=== PATIENT | female | born 1960 | race Caucasian/White ===

== ENCOUNTER 2016-05-30 10:00 | Outpatient (CLI) | payer MEDICARE ==
--- OUTSIDE RECORDS SUMMARY | 2016-05-26 05:43 | XMS REPORT | Continuity of Care Document ---
Author Author [facility] Organization [facility] Address Unknown Phone Unavailable Care Team Providers Care Child Care Assistant Name Role Phone Willian Isaac PCP [phone] Source Comments Some departments are not documenting in the electronic medical record. If you do not see the information that you expected, contact Release of Information in the Health Information Management department at [phone] for further assistance in locating additional records.[facility] Active Allergies and Adverse Reactions No Known Allergies Current Medications Prescription Sig. Disp. Refills Start End Date Status Date lamoTRIgine (LAMICTAL) Take 200 mg by mouth Active 200 mg tablet daily. ziprasidone (GEODON) 80 Take 160 mg by mouth Active mg capsule daily with dinner. zolpidem CR(+) (AMBIEN Take 12.5 mg by mouth at Active CR) 12.5 mg tablet bedtime as needed. traZODone (DESYREL) 150 Take 150 mg by mouth at Active mg tablet bedtime daily. promethazine (PHENERGAN) Take 25 mg by mouth every Active 25 mg tablet 6 hours as needed. cyclobenzaprine Take 10 mg by mouth twice Active (FLEXERIL) 10 mg tablet daily. esomeprazole DR(+) Take 40 mg by mouth every Active (NEXIUM) 40 mg capsule morning. buPROPion XL (WELLBUTRIN Take 1 Tab by mouth 15 Tab 0 08/07/19 Active XL) 150 mg tablet daily. 13 Active Problems Problem Noted Date Bipolar affective disorder, depressed, severe (HCC) 04/07/2010 OPIOID ABUSE, IN REMISSION 04/07/2010 History of alcohol abuse 04/07/2010 Depression 02/10/2010 Resolved Problems Problem Noted Date Resolved Date Suicidal ideation 04/07/2010 04/27/2010 Social History Tobacco Use Types Packs/Day Years Used Date Current Every Day Smoker Cigarettes 1.5 35 Smokeless Tobacco: Never Used Alcohol Use Drinks/Week oz/Week Comments Yes 6 Standard 3.0 history of alcohol dependence in remission for 10 drinks or years until January 2010 equivalent Last Filed Vital Signs Vital Sign Reading Time Taken Blood Pressure 112/72 08/06/2012 7:00 AM CDT Pulse 76 08/06/2012 7:00 AM CDT Temperature 36.8 C (98.2 F) 08/06/2012 7:00 AM CDT Respiratory Rate - - Height 1.645 m (5' 4.76") 08/02/2012 11:00 PM CDT Weight 69 kg (152 lb 1.9 oz) 08/02/2012 11:00 PM CDT Body Mass Index 25.5 08/02/2012 11:00 PM CDT Oxygen Saturation 98% 08/02/2012 6:35 PM CDT Plan of Care Health Maintenance Due Date Last Done Comments Physical (Comprehensive) 02/16/1968 Exam Pertussis Vaccine 02/16/1972 Tetanus Vaccine 1978 Cervical Cancer Screening 1982 Breast Cancer Screening 2001 Colorectal Cancer 2011 Screening Influenza Vaccine 12/17/2015 Results from Last 3 Months Not on file
[~2016-05-30] VITALS: Ht 162.6 cm; Wt 78.8 kg
[~2016-05-30 10:00] MED LIST: AMIT50TA3 PO; CALC-793 PO; CITA10TA PO; CLON2TAB16 PO; CYAN100081 PO; CYCL10TA9 PO; ESOM20SU PO; HYDR1TAB PO; LAMO100T69 PO; LAMO200T14 PO; METO10TA3 PO; MULT-963 PO; NAPR-591 PO; NAPR-689 PO; NAPR220C11 PO; NAPR550T2 PO; NF-ESOM40C PO; NITR100C3 PO; OXYB10TA8 PO; OXYC-272 PO; PRM25T PO; QUET300T3 PO; TBR.3OP51 OD; TIZA4TAB55 PO; TRAZ150T42 PO; VORT10TA PO; ZLP5T PO; ZOLP12.5 PO; ZOLP12.541 PO; ZPR80C PO
[2016-05-30] MEDS ORDERED: BUPR1FIL3 SL (10:12)
[2016-05-30] MEDS ORDERED: VENL150C PO (10:12)
[2016-05-30] MEDS ORDERED: GABA-490 PO (10:12)
[2016-05-30] MEDS ORDERED: OMEP20TA7 PO (10:12)
[2016-05-30] MEDS ORDERED: CLON1TAB PO (10:12)
[2016-05-30] MEDS ORDERED: AMIT100T2 PO (10:12)
--- OUTSIDE RECORDS SUMMARY | 2016-05-30 10:51 | XMS REPORT | Continuity of Care Document ---
Author Author [facility] Organization [facility] Address Unknown Phone Unavailable Care Team Providers Care Maintenance Department Technician Name Role Phone Willian Isaac PCP [phone] Source Comments Some departments are not documenting in the electronic medical record. If you do not see the information that you expected, contact Release of Information in the Health Information Management department at [phone] for further assistance in locating additional records.[facility] Active Allergies and Adverse Reactions No Known [...]
[2016-05-31] MEDS ORDERED: PANT40TA3 PO (10:29)
[2016-05-31] MEDS ORDERED: SUCR1TAB36 PO (10:30)
== END 2016-05-30 11:04 ==
LOC: PREOP 10:00
PROVIDERS: ATTEND Surgery
DX: Z01.818 Encounter for other preprocedural examination (principal); K21.9 Gastro-esophageal reflux disease without esophagitis

== ENCOUNTER 2016-05-31 09:06 | Day surgery (SDC) | payer MEDICARE, MEDICAID ==
[~2016-05-31] VITALS: Ht 162.6 cm; Wt 78.8 kg
[~2016-05-31 09:06] MED LIST changes: +AMIT100T2 PO; +BUPR1FIL3 SL; +CLON1TAB PO; +GABA-490 PO; +OMEP20TA7 PO; +VENL150C PO
--- OUTSIDE RECORDS SUMMARY | 2016-05-31 09:11 | XMS REPORT | Continuity of Care Document ---
Author Author [facility] Organization [facility] Address Unknown Phone Unavailable Care Team Providers Care Engagement Mgr Name Role Phone Willian Isaac PCP [phone] Source Comments Some departments are not documenting in the electronic medical record. If you do not see the information that you expected, contact Release of Information in the Health Information Management department at [phone] for further assistance in locating additional records.[facility] Active Allergies and Adverse Reactions No Known [...]
--- OUTSIDE RECORDS SUMMARY | 2016-05-31 09:11 | XMS REPORT | Continuity of Care Document ---
Author Author [facility] Organization [facility] Address Unknown Phone Unavailable Care Team Providers Care Superintendent Building Name Role Phone Willian Isaac PCP [phone] Source Comments Some departments are not documenting in the electronic medical record. If you do not see the information that you expected, contact Release of Information in the Health Information Management department at [phone] for further assistance in locating additional records.[facility] Active Allergies and Adverse Reactions [...]
[2016-05-31] MEDS ORDERED: NS IV 1000 ML 1,000 ML IV STA (09:21)
[2016-05-31] MEDS ORDERED: HURRICAINE EXT TUBE (BENZOCAINE) XX PRN (09:30)
[2016-05-31 09:35] VITALS: BP 158/79
[2016-05-31] MEDS ORDERED: PROPOFOL INJECTION 50 ML IV ONE (09:38)
[2016-05-31] MEDS ORDERED: MIDAZOLAM 2 MG/2 ML (VERSED) VIAL ONE (09:38)
--- NOTE | 2016-05-31 09:47 | Progress Note-Pre Operative ---
Pre-Operative Progress Note H&P Reviewed The H&P was reviewed, patient examined and no changes noted. Date H&P Reviewed: May 31, 2016 Time H&P Reviewed: 09:47 Pre-Operative Diagnosis: GERD, screening colonoscopy ASTER SERRANO DO May 31, 2016 9:47 am
[2016-05-31] MEDS ORDERED: PANT40TA3 PO (10:29)
--- NOTE | 2016-05-31 10:29 | Progress Note-Post Operative ---
Post-Operative Progess Note Pre-Operative Diagnosis GERD, screening colonoscopy Post-Operative Diagnosis hiatal hernia, gastritis, schatzski's ring and colon polyps Post-Op Procedure Note Date of Procedure: May 31, 2016 Name of Procedure: egd c biopsies, colonoscopy with hot bx polypectomy x 3 Procedure Note/Findings see note Anesthesia Type per desk operator Estimated blood loss (mL): none Specimen(s) collected antrum, distal esophagus, ascending, descending rectal polyps ASTER SERRANO DO May 31, 2016 10:29 am
[2016-05-31] MEDS ORDERED: SUCR1TAB36 PO (10:30)
--- NOTE | 2016-05-31 10:34 | Discharge Inst-Simple/Standard ---
Discharge Inst-Standard Discharge Medications New, Converted or Re-Newed RX: RX on Chart Patient Instructions/Follow Up Plan of Care/Instructions/FU: Follow up with Dr. Coughlin in 3 weeks Take medication as directed. Repeat colonoscopy in 5 years or sooner if current condition changes. Activity as Tolerated: Yes Discharge Diet: No Restrictions DERIC ALEXANDER APRN May 31, 2016 10:34
[2016-05-31 10:45] VITALS: BP 126/72
[2016-05-31 11:15] VITALS: BP 128/65
[2016-05-31 12:00] VITALS: BP 128/65
--- NOTE | 2016-06-01 13:38 | PROCEDURE REPORT ---
PROCEDURE PHYSICIAN: ASTER SERRANO DATE OF PROCEDURE: 05/31/2016 PREOPERATIVE DIAGNOSIS: 1. GERD. 2. Screening colonoscopy. POSTOPERATIVE DIAGNOSES: 1. Hiatal hernia. 2. Gastritis. 3. Schatzki's ring. 4. Colon polyps. PROCEDURE: 1. EGD with biopsies. 2. Colonoscopy with hot biopsy polypectomy x3. SURGEON: Ced. ANESTHESIA: Per ADVERTISING DISPATCH CLERK. ESTIMATED BLOOD LOSS: None. COMPLICATIONS: None. INDICATIONS: The patient is a 56-year-old female who has been having worsening reflux symptoms. She understands the risk and benefits of EGD and she also understood risks, benefits of colonoscopy, she has not had a colonoscopy. She understands both and wishes to proceed. Consent was signed on the chart. PROCEDURE: The patient was taken the endoscopy suite, placed in left lateral recumbent position. Timeout was performed. The scope was inserted in the mouth down the esophagus, stomach and into the duodenum. There were no polyps, masses or ulcerations within the duodenum. The scope was slowly retracted back to the stomach where it was further insufflated which had erythematous changes consistent with gastritis. Biopsy of the antrum was obtained. The scope was retroflexed noting a small hiatal hernia. The scope was then returned to its normal position slowly withdrawn back into the esophagus, where there was the presence of a Schatzki's ring. Biopsy of the distal esophagus was obtained. The scope was slowly retracted back until completely removed noting no other pathology. COLONOSCOPY: Digital rectal exam was performed. There is no palpable polyps, masses, ulcerations. The scope was inserted in the rectum, advanced all the way to the cecum with minimal difficulty. Prep was adequate with irrigation and suction. There were no polyps, masses, ulcerations of the cecum. Within the ascending colon there is a small polyp was present which hot biopsy polypectomy was performed. The scope was continued to be slowly retracted back to the transverse colon without any pathology noted. The scope was in the descending colon. A small polyp was present which hot biopsy polypectomy was performed. The scope was continued to be slowly retracted back and there no polyps, masses, ulcerations within the sigmoid colon. Within the rectum there was another small polyp present which hot biopsy polypectomy was performed. The scope was also retroflexed noting no further pathology. The scope was returned to its normal position slowly withdrawn until completely removed. The patient tolerated the procedure well without any complications. She was taken recovery room in stable condition. The patient will be changed from Prilosec to Protonix 40 mg daily. She will be on Carafate 1 gram 4 times a day. The patient will need repeat colonoscopy in 5 years due to colon polyps. If she has any problems prior to that, she should be reevaluated at that time. The patient will follow-up in 3 weeks to discuss pathology results. Job ID: [id number] Dictated Date: 05/31/2016 10:40:09 Board Finisher Date: 06/01/2016 13:28:53 / sammy
== END 2016-05-31 12:00 | disposition home or self-care (01) ==
LOC: ENDO 09:06
PROVIDERS: ATTEND Surgery
DX: Z12.11 Encounter for screening for malignant neoplasm of colon (principal); D12.2 Benign neoplasm of ascending colon; D12.8 Benign neoplasm of rectum; K63.5 Polyp of colon; K22.2 Esophageal obstruction; K44.9 Diaphragmatic hernia without obstruction or gangrene; K29.50 Unspecified chronic gastritis without bleeding; B96.81 Helicobacter pylori [H. pylori] as the cause of diseases classified elsewhere
CPT/HCPCS: 88305; 88342

== ENCOUNTER 2016-06-27 02:28 | Emergency (ER) | payer MEDICARE, MEDICAID ==
[~2016-06-27] VITALS: Ht 162.6 cm; Wt 81.6 kg
[~2016-06-27 02:28] MED LIST changes: +PANT40TA3 PO; +SUCR1TAB36 PO
--- OUTSIDE RECORDS SUMMARY | 2016-06-27 02:35 | XMS REPORT | Continuity of Care Document ---
Author Author [facility] Organization [facility] Address Unknown Phone Unavailable Care Team Providers Care Radar Scientist Name Role Phone Willian Isaac PCP [phone] Source Comments Some departments are not documenting in the electronic medical record. If you do not see the information that you expected, contact Release of Information in the Health Information Management department at [phone] for further assistance in locating additional records.[facility] Active Allergies and Adverse Reactions No [...]
[2016-06-27] MEDS ORDERED: LIDOCAINE 2% VISCOUS 15 ML UDC PO ONE (02:45)
[2016-06-27] MEDS ORDERED: ANTACID SUSP 30 ML UDC (MYLANTA) PO ONE (02:45)
[2016-06-27] MEDS ORDERED: SUCR1TAB36 PO (02:52)
--- NOTE | 2016-06-27 02:52 | ED EENT ---
History of Present Illness General Chief Complaint: Oral/Throat Problems Stated Complaint: THROAT PAIN Nursing Triage Note: patient reports her throat is burning, reports having this problem before and having egd done and given antibiotics and protonix Source: patient Exam Limitations: no limitations History of Present Illness Time seen by provider: 02:48 Initial Comments Patient has a history of reflux. She recently had a endoscopy which showed gastritis. She complains of burning in her throat especially when supine at night. This triggers a coughing spell. It happens every night but tonight it is worse. Allergies and Home Medications Allergies Coded Allergies: No Known Drug Allergies (Unverified , 11/11/11) Home Medications Amitriptyline HCl 100 Mg Tablet 100 MG PO HS (Reported) Buprenorphine HCl/Naloxone HCl 1 Each Film 1 EACH SL DAILY (Reported) Clonazepam 1 Mg Tablet 1 MG PO BID (Reported) Gabapentin 400 Mg Capsule 400 MG PO TID (Reported) Metoclopramide Hcl 10 Mg Tablet 10 MG PO ACHS (Reported) Pantoprazole Sodium 40 Mg Tablet.dr #30 40 MG PO DAILY Prescribed by: DERIC ALONZO on 05/31/16 1029 Sucralfate 1 Gm Tablet #120 1 GM PO QID Prescribed by: DERIC ALONZO on 05/31/16 1030 Sucralfate 1 Gm Tablet #20 1 GM PO ACHS Prescribed by: MARTHA JEAN on 06/27/16 0252 Venlafaxine HCl 150 Mg Cap.er.24h 300 MG PO DAILY (Reported) TAKE 2 (150MG) TABS Review of Systems Constitutional: no symptoms reported Throat: see HPI pain Respiratory: cough Past Ryzvqms-Cjilqw-Rnvope Hx Patient Social History Alcohol Use: Past History Recreational Drug Use: No Smoking Status: Former Smoker Type Used: Cigarettes Recent Foreign Travel: No Contact w/Someone Who Travel: No Recent Infectious Disease Expo: No Recent Hopitalizations: No Immunizations Up To Date Tetanus Booster (TDap): Unknown Date of Pneumonia Vaccine: Mar 19, 2012 Date of Influenza Vaccine: Mar 19, 2012 Seasonal Allergies Seasonal Allergies: No Surgeries HX Surgeries: Yes Surgeries: Section, Hysterectomy Respiratory Hx Respiratory Disorders: No Cardiovascular Hx Cardiac Disorders: No Neurological Hx Neurological Disorders: No Reproductive System Hx Reproductive Disorders: No Sexually Transmitted Disease: No HIV/AIDS: No Female Reproductive Disorders: 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 Genitourinary Hx Genitourinary Disorders: Yes (URGE INCONTINENCE) Gastrointestinal Hx Gastrointestinal Disorders: Yes Gastrointestinal Disorders: Gastroesophageal Reflux, Chronic Constipation Musculoskeletal Hx Musculoskeletal Disorders: Yes Musculoskeletal Disorders: Arthritis Endocrine Hx Endocrine Disorders: No HEENT HX ENT Disorders: No Loss of Vision: Denies Hearing Impairment: Denies Cancer Hx Cancer: No Psychosocial Hx Psychiatric Problems: Yes (EXTENSIVE PSYCH ISSUES, history of overdose) Behavioral Health Disorders: Eating Disorder, Anxiety, Suicide Attempts, Depression Integumentary HX Skin/Integumentary Disorder: No Blood Transfusions Hx Blood Disorders: No Adverse Reaction to a Blood Tr: No Reviewed Nursing Assessment Reviewed/Agree w Nursing PMH: Yes Family Medical History Significant Family History: No Pertinent Family Hx Family Medial History: Physical Exam Vital Signs Vital Sign - Last 12Hours 06/27/16 02:39 Temp 99.2 Pulse 89 Resp 18 B/P 119/78 Pulse Ox 96 General Appearance: WD/WN no apparent distress Nose: normal inspection Mouth/Throat: pharynx normalNo tonsillar swelling, No uvula swelling, No voice changes Neck: supple Cardiovascular: regular rate, rhythm Respiratory: lungs clear normal breath sounds Gastrointestinal: soft Neurologic/Psychiatric: alert normal mood/affect Skin: normal color warm/dry Progress/Results/Core Measures Results/Orders My Orders Orders-MARTHA JEAN MD Antacid Suspension (Mylanta Suspension (06/27/16 02:45) Lidocaine 2% Viscous 15 Ml (Xylocaine Vi (06/27/16 02:45) Medications Given in ED Current Medications Medications Dose Ordered Sig/Spike Route Start Time Stop Time Status Last Admin Dose Admin Al Hydrox/Mg Hydrox/Simethicone 30 ml ONCE ONCE PO 06/27/16 02:45 06/27/16 02:47 DC 06/27/16 02:53 30 ML Lidocaine HCl 15 ml ONCE ONCE PO 06/27/16 02:45 06/27/16 02:47 DC 06/27/16 02:53 15 ML Vital Signs/I&O Vital Sign - Last 12Hours 06/27/16 02:39 Temp 99.2 Pulse 89 Resp 18 B/P 119/78 Pulse Ox 96 Blood Pressure Mean: 92 Progress Note : Time: 03:11 Progress Note Better after GI cocktail. Ready for discharge. Patient is on maximum medical therapy. Departure Impression Impression: Primary Impression: Gastroesophageal reflux Disposition: 01 HOME, SELF-CARE Condition: Stable Departure-Patient Inst. Decision time for Depature: 03:11 Referrals: BALA SUTTON MD (PCP/Family) Primary Care Physician Patient Instructions: Acid Reflux (Gastroesophageal Reflux Disease) in Adults MARTHA JEAN MD Jun 27, 2016 02:52
[2016-06-27 03:24] VITALS: BP 119/78
== END 2016-06-27 03:25 | disposition home or self-care (01) ==
LOC: EDUNIT# 02:28 → ER 02:31
DX: K21.9 Gastro-esophageal reflux disease without esophagitis (principal)
CPT/HCPCS: 99282

== ENCOUNTER 2016-10-26 18:06 | Emergency (ER) | payer MEDICARE, MEDICAID ==
[~2016-10-26] VITALS: Ht 162.6 cm; Wt 81.6 kg
--- OUTSIDE RECORDS SUMMARY | 2016-10-26 18:14 | XMS REPORT ---
Author Author NOHEMYANDREW Organization [facility] Address [address] [place] [address] Care Team Providers Care Pattern Mechanic Name Role Phone ANDREW SLATER Unavailable PROBLEMS Type Condition ICD9-CM Code KHW43-OC Code Onset Dates Condition Status SNOMED Code Assessment Bipolar disorder, current episode depressed, moderate F31.32 Dec, Active 539395520 Problem Neuropathy G62.9 Active 946474582 Problem Reflux esophagitis K21.0 Active 893472727 Assessment Other adjunct faculty for medical terminology (current) drug therapy Z79.899 Dec, Active 093481716 Assessment Anxiety disorder, unspecified F41.9 Dec, Active 587972815 Problem Bipolar disorder, current episode depressed, moderate F31.32 Active 062171416 Problem Alcohol dependence, uncomplicated F10.20 Active 16412876 Problem Hyperlipidemia, unspecified E78.5 Active 05157854 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 Unknown Non Drug Allergy Dec, Unknown SOCIAL HISTORY No smoking Hx information available PLAN OF CARE VITAL SIGNS Height 64 in 2015-12-31 Weight 171.9 lbs 2015-12-31 Heart Rate 100 bpm 2015-12-31 Respiratory Rate 20 2015-12-31 BMI 29.50 kg/m2 2015-12-31 Blood pressure systolic 164 mmHg 2015-12-31 Blood pressure diastolic 80 mmHg 2015-12-31 MEDICATIONS Medication Instructions Dosage Frequency Start Date End Date Duration Status Amitriptyline HCl 100 MG Orally Once a day at hs 2 tablets 30 days Active Propranolol HCl 10 MG Orally Twice a day 1 tablet 12h Active Omeprazole 20 MG Orally Once a day 1 24h 30 Active Suboxone 4-1 MG Sublingual Once a day 1 application under the tongue and allow to dissolve 24h Active Klonopin 1 MG Orally Twice a day 1 tablet 12h Active BuPROPion HCl (SR) 150 MG Orally Twice a day 1 tablet 12h Nov, 30 day(s) Active Effexor XR 150 MG Orally Once a day TAKE ONE CAPSULE BY MOUTH ONCE DAILY 24h 30 days Active Aleve 220 MG Orally every 12 hrs 1 tablet as needed 12h Active Lamotrigine 100 MG Orally Once a day Beginning January 28, 2016, take 1 tablet 24h Dec, 30 day(s) Active Lamotrigine 25 MG Orally daily 1 tablet every day X 2 weeks then 2 tabs daily X 2 weeks. 24h Dec, 28 days Active RESULTS No Results PROCEDURES Procedure Date Ordered Related Diagnosis Body Site [facility] VISIT ESTABLISHED PATIENT Dec 31, 2015 Office Visit, Est Pt., Level 4 Dec 31, 2015 IMMUNIZATIONS No Known Immunizations
--- OUTSIDE RECORDS SUMMARY | 2016-10-26 18:14 | XMS REPORT ---
Author Author EVAN COSTELLO Organization [employer] Address Unknown Phone Unavailable Care Team Providers Care Furs Salesperson Name Role Phone EVAN COSTELLO CP Unavailable Allergies, Adverse Reactions, Alerts Substance Reaction Event Type N.K.D.A. Info Not Available Non Drug Allergy Problems Problem Type Condition Code Onset Dates Condition Status Problem 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 Assessment Bipolar 1 disorder, depressed, severe F31.4 Active Problem Reflux esophagitis 530.11 Active Problem Bipolar disorder, current episode depressed, moderate F31.32 Active Problem Neuropathy 355.9 Active Problem Unspecified arthropathy, site unspecified 716.90 Active Problem Other and unspecified hyperlipidemia 272.4 Active Problem Alcohol dependence, uncomplicated F10.20 Active Problem Bulimia nervosa F50.2 Active Medications Medication Code System Code Instructions Start Date End Date Status Dosage Reglan [facility] [address]-90 10 MG 3 times a day November 04, 2013 1 tablet by Oral route 3 times per day a c Gabapentin [facility] [address]-65 300 MG Orally Three times a day Jan 08, 2015 1 capsule Suboxone [facility] [address]-24 8-2 MG Sublingual Once a day 1 application under the tongue and allow to dissolve Ambien [facility] [address]-98 10 MG Orally Once a day qHS October 24, 2014 1 tablet Effexor XR [facility] [address]-59 150 MG Orally Once a day - start on day 8 Dec 23, 2014 1 capsule with food Topiramate [facility] [address]-18 50 MG Orally Twice a day August 25, 2014 1 tablet Aleve [facility] [address]-17 220 MG Orally every 12 hrs 1 tablet as needed Omeprazole [facility] [address]-51 20 MG Orally Once a day Jan 08, 2015 1 Naprosyn [facility] [address]-19 500 mg August 19, 2013 1 tablet by Oral route 2 times per day pc Lamictal [facility] [address]-40 200 MG Orally May 20, 2014 1 tablet by Oral route 1 time per day Stop drug and call if rash develops Seroquel [facility] [address]-52 300 MG Orally Once a day Dec 23, 2014 1 tablet at bedtime Procedures Procedure Coding System Code Date Office Visit, Yanely Pt., Level 3 CPT-4 74909 Jan 29, 2015 [facility] VISIT ESTABLISHED PATIENT CPT-4 G0467 Jan 29, 2015 Vital Signs Date/Time: Jan 29, 2015 Cardiac Monitoring Heart Rate 80 bpm Weight 163.0 lbs Height 64 in BMI 27.98 Index Blood Pressure Diastolic 74 mmHg Blood Pressure Systolic 125 mmHg Results No Known Results Summary Purpose [employer] Submission
--- OUTSIDE RECORDS SUMMARY | 2016-10-26 18:14 | XMS REPORT ---
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
--- OUTSIDE RECORDS SUMMARY | 2016-10-26 18:14 | XMS REPORT ---
Author Author ANDREW SLATER Organization [employer] Address Unknown Phone Unavailable Care Team Providers Care Disease Case Manager Name Role Phone ANDREW SLATER CP Unavailable Allergies No Known Allergies Problems Problem Type Condition Code Onset Dates Condition Status Assessment Alcohol dependence, uncomplicated F10.20 Active Problem Reflux esophagitis K21.0 Active Assessment Bipolar disorder, current episode depressed, moderate F31.32 Active Problem Alcohol dependence, uncomplicated F10.20 Active Problem Bulimia nervosa F50.2 Active Problem Bipolar disorder, current episode depressed, moderate F31.32 Active 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
--- OUTSIDE RECORDS SUMMARY | 2016-10-26 18:14 | XMS REPORT ---
Author Author VIDYA GARCIA Organization [employer] Address Unknown Phone Unavailable Care Team Providers Care Crank Hand Name Role Phone VIDYA GARCIA CP Unavailable Allergies No Known Allergies Problems Problem Type Condition Code Onset Dates Condition Status Assessment Bulimia nervosa F50.2 Active Problem 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 Assessment Bipolar disorder, current episode depressed, moderate F31.32 Active Assessment Alcohol dependence, uncomplicated F10.20 Active Problem Reflux esophagitis 530.11 Active Problem Bipolar disorder, current episode depressed, moderate F31.32 Active Problem Neuropathy 355.9 Active Problem Unspecified arthropathy, site unspecified 716.90 Active Problem Other and unspecified hyperlipidemia 272.4 Active Problem Alcohol dependence, uncomplicated F10.20 Active Problem Bulimia nervosa F50.2 Active Medications No Known Medications Procedures Procedure Coding System Code Date Psychotherapy, patient &/family, 45 minutes, established patient CPT-4 17615 Feb 20, 2015 [facility] VISIT MENTAL HEALTH ESTAB PT CPT-4 G0470 Feb 20, 2015 Results No Known Results Summary Purpose [employer] Submission
--- OUTSIDE RECORDS SUMMARY | 2016-10-26 18:14 | XMS REPORT ---
Author Author ANDREW SLATER Organization [employer] Address Unknown Phone Unavailable Care Team Providers Care Horse Racing Manager Name Role Phone ANDREW SLATER CP [...] unspecified E78.5 Active Medications No Known Medications Results No Known Results Summary Purpose [employer] Submission
--- OUTSIDE RECORDS SUMMARY | 2016-10-26 18:14 | XMS REPORT | Continuity of Care Document ---
Author Author [facility] Organization [facility] Address Unknown Phone Unavailable Care Team Providers Care Cancer Registrar Name Role Phone Willian Isaac PCP [phone] Source Comments Some departments are not documenting in the electronic medical record. If you do not see the information that you expected, contact Release of Information in the Health Information Management department at [phone] for further assistance in locating additional records.[facility] Active Allergies and Adverse Reactions No [...] Health Maintenance Due Date Last Done Comments Hepatitis C Screening 1961 Physical (Comprehensive) 02/16/1968 Exam Pertussis Vaccine 02/16/1972 Tetanus Vaccine 1978 Cervical Cancer Screening 1982 Breast Cancer Screening 2001 Colorectal Cancer 2011 Screening Influenza Vaccine 12/16/2016 Results from Last 3 Months Not on file
--- OUTSIDE RECORDS SUMMARY | 2016-10-26 18:14 | XMS REPORT ---
Author Author ANDREW SLATER Organization [employer] Address Unknown Phone Unavailable Care Team Providers Care Line Painting Machine Operator Name Role Phone ANDREW SLATER CP Unavailable [...] Instructions Start Date End Date Status Dosage BuPROPion HCl (SR) [facility] [address]-06 150 MG Orally Twice a day Dec 03, 2015 1 tablet Results No Known Results Summary Purpose [employer]ClinicalWorks Submission
--- OUTSIDE RECORDS SUMMARY | 2016-10-26 18:14 | XMS REPORT ---
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
--- OUTSIDE RECORDS SUMMARY | 2016-10-26 18:14 | XMS REPORT ---
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 Assessment Bipolar disorder, current episode depressed, moderate F31.32 Active Assessment Bulimia nervosa F50.2 Active Problem Reflux esophagitis 530.11 Active Problem Bipolar disorder, current episode depressed, moderate F31.32 Active Problem Neuropathy 355.9 Active Problem Unspecified arthropathy, site 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
--- OUTSIDE RECORDS SUMMARY | 2016-10-26 18:15 | XMS REPORT ---
Author Author BALA SUTTON Organization [employer] Address Unknown Phone Unavailable Care Team Providers Care Stoner Out Name Role Phone BALA SUTTON CP Unavailable Allergies No Known Allergies Problems Problem Type Condition Code Onset Dates Condition Status Problem Reflux esophagitis K21.0 Active Assessment Abnormal TSH R79.89 Active Problem Alcohol dependence, uncomplicated F10.20 Active Problem Bulimia nervosa F50.2 Active Problem Bipolar disorder, current episode depressed, moderate F31.32 Active Problem Hypertonicity of bladder N31.8 Active Problem Neuropathy G62.9 Active Problem Arthropathy, unspecified M12.9 Active Problem Hyperlipidemia, unspecified E78.5 Active Medications No Known Medications Results No Known Results Summary Purpose [employer] Submission
--- OUTSIDE RECORDS SUMMARY | 2016-10-26 18:15 | XMS REPORT ---
Author Author VIDYA GARCIA Organization [employer] Address Unknown Phone Unavailable Care Team Providers Care Guide Name Role Phone VIDYA GARCIA CP Unavailable [...] patient &/family, 45 minutes, established patient CPT-4 68366 Apr 02, 2015 [facility] VISIT MENTAL HEALTH ESTAB PT CPT-4 G0470 Apr 02, 2015 Results No Known Results Summary Purpose [employer] Submission
--- OUTSIDE RECORDS SUMMARY | 2016-10-26 18:15 | XMS REPORT ---
Author Author ANDREW SLATER Organization [employer] Address Unknown Phone Unavailable Care Team Providers Care Grain And Yeast Plants Supervisor Name Role Phone ANDREW SLATER CP Unavailable [...]
--- OUTSIDE RECORDS SUMMARY | 2016-10-26 18:15 | XMS REPORT ---
Author Author SHELBY TAO [employer] Address Unknown Phone Unavailable Care Team Providers Care Personalized Living Manager Nurse Name Role Phone SHELBY TAO Unavailable Allergies, Adverse Reactions, Alerts Substance Reaction Event Type N.K.D.A. Info Not Available Non Drug Allergy Problems Problem Type Condition Code Onset Dates Condition Status Assessment Other fatigue R53.83 Active Problem Reflux esophagitis K21.0 Active Assessment Well woman exam Z01.419 Active Problem Alcohol dependence, uncomplicated F10.20 Active Assessment Papanicolaou smear Z12.4 Active Problem Bulimia nervosa F50.2 Active Assessment Left lower quadrant pain R10.32 Active Problem Bipolar disorder, current episode depressed, moderate F31.32 Active Problem Hypertonicity of bladder N31.8 Active Problem Neuropathy G62.9 Active Problem Arthropathy, unspecified M12.9 Active Problem Hyperlipidemia, unspecified E78.5 Active Assessment Anxiety F41.9 Active Assessment Hot flashes due to surgical menopause E89.41 Active Assessment Vaginal discharge N89.8 Active Assessment Depression F32.9 Active Assessment Exposure to hepatitis C Z20.5 Active Assessment Other constipation K59.09 Active Assessment Tobacco use Z72.0 Active Assessment Decreased appetite R63.0 Active Assessment Dyspareunia N94.1 Active Assessment Weight loss R63.4 Active Medications Medication Code System Code Instructions Start Date End Date Status Dosage Topiramate [facility] [address]-43 50 MG Orally Twice a day August 25, 2014 1 tablet Amitriptyline HCl [facility] 23347519512 100 MG TAKE ONE TO TWO TABLETS BY MOUTH DAILY NEEDED FOR SLEEP Suboxone [facility] [address]-34 8-2 MG Sublingual Once a day 1 application under the tongue and allow to dissolve Aleve [facility] [address]-93 220 MG Orally every 12 hrs 1 tablet as needed Lamictal [facility] [address]-07 200 MG Orally May 20, 2014 1 tablet by Oral route 1 time per day Stop drug and call if rash develops Seroquel [facility] [address]-27 300 MG Orally Once a day Dec 23, 2014 1 tablet at bedtime Reglan [facility] [address]-39 10 MG 3 times a day November 04, 2013 1 tablet by Oral route 3 times per day a c Omeprazole [facility] [address]-92 20 MG Orally Once a day Jan 08, 2015 1 Gabapentin [facility] [address]-59 300 MG Orally Three times a day Jan 08, 2015 1 capsule Ambien [facility] [address]-57 10 MG Orally Once a day qHS October 24, 2014 1 tablet Effexor XR [facility] [address]-76 150 MG Orally Once a day TAKE ONE CAPSULE BY MOUTH ONCE DAILY Procedures Procedure Coding System Code Date No Charge CPT-4 37842 Apr 08, 2015 TRICHOMONAS ASSAY W/OPTIC CPT-4 88376 Apr 08, 2015 [facility] C[facility]-4 NOBLL Apr 08, 2015 VENIPUNCT, ROUTINE* CPT-4 61481 Apr 08, 2015 SPECIMEN HANDLING CPT-4 08000 Apr 08, 2015 Preventive Care Est Pt. Age 40-64 CPT-4 66171 Apr 08, 2015 Vital Signs Date/Time: Apr 08, 2015 Temperature 97.9 F Weight 156.1 lbs Height 64 in BMI 26.79 Index Blood Pressure Diastolic 84 mmHg Blood Pressure Systolic 142 mmHg Cardiac Monitoring Heart Rate 94 bpm Results Name Result Date Reference Range Unit Abnormality Flag ROUTINE VENIPUNCTURE Summary Purpose [employer]ClinicalWorks Submission
--- OUTSIDE RECORDS SUMMARY | 2016-10-26 18:15 | XMS REPORT ---
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
--- OUTSIDE RECORDS SUMMARY | 2016-10-26 18:15 | XMS REPORT ---
Author Author EVAN COSTELLO [facility] [employer] Address Unknown Phone Unavailable Care Team Providers Care Parts Delivery Driver Name Role Phone EVAN COSTELLO CP Unavailable Allergies, Adverse Reactions, Alerts Substance Reaction Event Type N.K.D.A. 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.90 Active Problem Other and unspecified hyperlipidemia 272.4 Active Problem Other specified disorders of bladder 596.89 Active Problem Bulimia nervosa 307.51 Active Problem 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 Problem Bipolar I disorder, most recent episode (or current) manic, moderate 296.42 Active Problem Other and unspecified alcohol dependence, unspecified drunkenness 303.90 Active Assessment Insomnia, unspecified 780.52 Active Assessment Bipolar I disorder, most recent episode (or current) depressed, severe, specified as with psychotic behavior 296.54 Active Problem Insomnia, unspecified 780.52 Active Assessment Anxiety state, unspecified 300.00 Active Problem Bipolar I disorder, most recent episode (or current) mixed, unspecified 296.60 Active Medications Medication Code System Code Instructions Start Date End Date Status Dosage Lamictal [facility] [address]-62 200 MG Orally May 20, 2014 1 tablet by Oral route 1 time per day Stop drug and call if rash develops Topiramate [facility] [address]-40 50 MG Orally Twice a day August 25, 2014 1 tablet Suboxone [facility] [address]-81 8-2 MG Sublingual Once a day 1 application under the tongue and allow to dissolve Effexor XR [facility] [address]-87 75 MG Orally Once a day - start on day 8 Dec 23, 2014 1 capsule with food Seroquel [facility] [address]-64 300 MG Orally Once a day Dec 23, 2014 1 tablet at bedtime Reglan [facility] [address]-89 10 mg November 04, 2013 1 tablet by Oral route 3 times per day a c Naprosyn [facility] [address]-06 500 mg August 19, 2013 1 tablet by Oral route 2 times per day pc Ambien [facility] [address]-00 10 MG Orally Once a day qHS October 24, 2014 1 tablet Effexor XR [facility] [address]-20 37.5 MG Orally Take one daily X 7 days Dec 1 capsule with food Procedures Procedure Coding System Code Date Office Visit, Est Pt., Level 3 CPT-4 45622 Dec 23, 2014 [facility] VISIT ESTABLISHED PATIENT CPT-4 G0467 Dec 23, 2014 Vital Signs Date/Time: Dec 23, 2014 Temperature 98.6 F Weight 165.6 lbs Height 64 in BMI 28.42 Index Blood Pressure Diastolic 82 mmHg Blood Pressure Systolic 128 mmHg Cardiac Monitoring Heart Rate 72 bpm Results No Known Results Summary Purpose [employer]ClinicalWorks Submission
--- OUTSIDE RECORDS SUMMARY | 2016-10-26 18:15 | XMS REPORT ---
Author Author VIDYA GARCIA [facility] e[employer] Address Unknown Phone Unavailable Care Team Providers Care Ladies Underwear Operator Name Role Phone VIDYA GARCIA CP Unavailable Allergies No Known Allergies Problems Problem Type Condition Code Onset Dates Condition Status Problem Reflux esophagitis K21.0 Active Assessment Bipolar [...] Coding System Code Date Psychotherapy, patient &/family, 30 minutes, established patient CPT-4 38540 October 22, 2015 [facility] VISIT MENTAL HEALTH ESTAB PT CPT-4 G0470 October 22, 2015 Results No Known Results Summary Purpose [employer]ClinicalWorks Submission
--- OUTSIDE RECORDS SUMMARY | 2016-10-26 18:15 | XMS REPORT ---
Author Author EVAN COSTELLO Organization [employer] Address Unknown Phone Unavailable Care Team Providers Care Hydraulic Lift Operator Name Role Phone EVAN COSTELLO CP Unavailable [...] Instructions Start Date End Date Status Dosage Omeprazole [facility] [address]-09 20 MG Orally Once a day Jan 08, 2015 1 Seroquel [facility] [address]-64 300 MG Orally Once a day Dec 23, 2014 1 tablet at bedtime Topiramate [facility] [address]-45 50 MG Orally Twice a day August 25, 2014 1 tablet Ambien [facility] [address]-10 10 MG Orally Once a day q October 24, 2014 1 tablet Gabapentin [facility] [address]-66 300 MG Orally Three times a day Jan 08, 2015 1 capsule Suboxone [facility] [address]-32 8-2 MG Sublingual Once a day 1 application under the tongue and allow to dissolve Aleve [facility] [address]-24 220 MG Orally every 12 hrs 1 tablet as needed Lamictal [facility] [address]-50 200 MG Orally May 20, 2014 1 tablet by Oral route 1 time per day Stop drug and call if rash develops Reglan [facility] [address]-09 10 MG 3 times a day November 04, 2013 1 tablet by Oral route 3 times per day a c Effexor XR [facility] [address]-33 150 MG Orally Once a day TAKE ONE CAPSULE BY MOUTH ONCE DAILY Procedures Procedure Coding System Code Date Office Visit, Yanely Pt., Level 3 CPT-4 69104 Mar 03, 2015 [facility] VISIT ESTABLISHED PATIENT CPT-4 G0467 Mar 03, 2015 Vital Signs Date/Time: Mar 03, 2015 Cardiac Monitoring Heart Rate 104 bpm Weight 159.9 lbs Height 64 in BMI 27.44 Index Blood Pressure Diastolic 88 mmHg Blood Pressure Systolic 160 mmHg Results No Known Results Summary Purpose [employer]ClinicalWorks Submission
--- OUTSIDE RECORDS SUMMARY | 2016-10-26 18:16 | XMS REPORT ---
Author Author ANDREW SLATER [employer] Address Unknown Phone Unavailable Care Team Providers Care Sign Builder Name Role Phone ANDREW SLATER CP Unavailable Allergies, Adverse Reactions, Alerts Substance Reaction Event Type N.K.D.A. Info Not Available Non Drug Allergy Problems Problem Type Condition Code Onset Dates Condition Status Assessment Anxiety disorder, unspecified F41.9 Active Problem Reflux esophagitis K21.0 Active Assessment [...] Date End Date Status Dosage BuPROPion HCl (Smoking Deter) [facility] [address]-85 150 MG Orally Twice a day 1 tablet Effexor XR [facility] [address]-33 150 MG Orally Once a day TAKE ONE CAPSULE BY MOUTH ONCE DAILY Klonopin [facility] [address]-48 1 MG Orally Twice a day 1 tablet Amitriptyline HCl [facility] 48351993582 100 MG Orally Once a day at hs 2 tablets BuPROPion HCl (XL) [facility] [address]-89 150 MG Orally BID Dec 01, 2015 1 tablet Ambien [facility] [address]-13 5 MG Orally Once a day qHS October 24, 2014 1 tablet Aleve [facility] [address]-02 220 MG Orally every 12 hrs 1 tablet as needed Propranolol HCl [facility] [address]-68 10 MG Orally Twice a day 1 tablet Suboxone [facility] [address]-60 8-2 MG Sublingual Once a day 1 application under the tongue and allow to dissolve Procedures Procedure Coding System Code Date Office Visit, Est Pt., Level 4 CPT-4 60310 Dec 01, 2015 [facility] VISIT ESTABLISHED PATIENT CPT-4 G0467 Dec 01, 2015 Vital Signs Date/Time: Dec 01, 2015 Cardiac Monitoring Heart Rate 112 bpm Weight 172.0 lbs Height 64 in BMI 29.52 Index Blood Pressure Diastolic 83 mmHg Blood Pressure Systolic 140 mmHg Results No Known Results Summary Purpose [employer]ClinicalWorks Submission
--- OUTSIDE RECORDS SUMMARY | 2016-10-26 18:16 | XMS REPORT ---
Author Author BALA SUTTON [facility] [employer] Address Unknown Phone Unavailable Care Team Providers Care Measurement Advisor Name Role Phone BALA SUTTON CP Unavailable [...] Instructions Start Date End Date Status Dosage Effexor XR [facility] [address]-23 150 MG Orally Once a day TAKE ONE CAPSULE BY MOUTH ONCE DAILY Results No Known Results Summary Purpose [employer]ClinicalWorks Submission
--- OUTSIDE RECORDS SUMMARY | 2016-10-26 18:16 | XMS REPORT ---
Author Author SHELBY TAO Organization [employer] Address Unknown Phone Unavailable Care Team Providers Care Lay Out Helper Name Role Phone SHELBY TAO Unavailable Allergies No Known Allergies Problems Problem [...] Instructions Start Date End Date Status Dosage Amoxicillin [facility] [address]-73 500 MG Orally every 8 hours Apr 22, 2015 Apr 29, 2015 1 capsule Results No Known Results Summary Purpose [employer]ClinicalWorks Submission
--- OUTSIDE RECORDS SUMMARY | 2016-10-26 18:16 | XMS REPORT ---
Author Author EVAN COSTELLO Organization [employer] Address Unknown Phone Unavailable Care Team Providers Care Sign Maintenance Name Role Phone EVAN COSTELLO CP Unavailable Allergies No Known Allergies Problems Problem Type Condition ICD-9 Code Onset Dates Condition Status Problem Bipolar I disorder, most recent episode (or current) depressed, severe , specified as with psychotic behavior 296.54 Active Problem Need for prophylactic vaccination and inoculation, Influenza V04.81 Active Problem Anxiety state, unspecified 300.00 Active Problem Insomnia, unspecified 780.52 Active Problem Bipolar I disorder, most recent episode (or current) mixed, unspecified 296.60 Active Problem Unspecified arthropathy, site unspecified 716.90 Active Problem Other and unspecified hyperlipidemia 272.4 Active Problem Other specified disorders of bladder 596.89 Active Problem Bulimia nervosa 307.51 Active Problem 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
--- OUTSIDE RECORDS SUMMARY | 2016-10-26 18:17 | XMS REPORT | Continuity of Care Document ---
Author Author [facility] of [facility] of [facility] Address Unknown Phone Unavailable Allergies Active Description Code Type Severity Reaction Onset Reported/Identified Relationship to Patient Clinical Status Yes No Known Drug Allergies [id number] Drug Allergy Unknown N/ A 11/11/2011 Medications Problems Date Dx Coded Attending Type Code Diagnosis Diagnosed By 08/11/2009 296.7 BIPOLAR I DISORDER MOST RECENT EPISODE (OR CURRENT) UNSPECIFIED 08/11/2009 787.02 NAUSEA ALONE 08/11/2009 EVANGELINA WATERMAN DO 296.7 BIPOLAR I DISORDER MOST RECENT EPISODE (OR CURRENT) UNSPECIFIED 08/11/2009 EVANGELINA WATERMAN DO 787.02 NAUSEA ALONE 08/11/2009 VIDYA GARCIA PSYD L 296.7 BIPOLAR I DISORDER MOST RECENT EPISODE (OR CURRENT) UNSPECIFIED 08/11/2009 VIDYA GARCIA PSYD 787.02 NAUSEA ALONE 08/11/2009 VIDYA GARCIA PSYD 296.7 BIPOLAR I DISORDER MOST RECENT EPISODE (OR CURRENT) UNSPECIFIED 08/11/2009 VIDYA GARCIA PSYD 787.02 NAUSEA ALONE 08/11/2009 EVANGELINA WATERMAN DO 296.7 BIPOLAR I DISORDER MOST RECENT EPISODE (OR CURRENT) UNSPECIFIED 08/11/2009 EVANGELINA WATERMAN DO 787.02 NAUSEA ALONE 08/11/2009 296.7 BIPOLAR I DISORDER MOST RECENT EPISODE (OR CURRENT) UNSPECIFIED 08/11/2009 787.02 NAUSEA ALONE 08/11/2009 296.7 BIPOLAR I DISORDER MOST RECENT EPISODE (OR CURRENT) UNSPECIFIED 08/11/2009 787.02 NAUSEA ALONE 08/11/2009 296.7 BIPOLAR I DISORDER MOST RECENT EPISODE (OR CURRENT) UNSPECIFIED 08/11/2009 787.02 NAUSEA ALONE 08/11/2009 296.7 BIPOLAR I DISORDER MOST RECENT EPISODE (OR CURRENT) UNSPECIFIED 08/11/2009 787.02 NAUSEA ALONE 08/11/2009 296.7 BIPOLAR I DISORDER MOST RECENT EPISODE (OR CURRENT) UNSPECIFIED 08/11/2009 787.02 NAUSEA ALONE 08/11/2009 296.7 BIPOLAR I DISORDER MOST RECENT EPISODE (OR CURRENT) UNSPECIFIED 08/11/2009 787.02 NAUSEA ALONE 08/11/2009 296.7 BIPOLAR I DISORDER MOST RECENT EPISODE (OR CURRENT) UNSPECIFIED 08/11/2009 787.02 NAUSEA ALONE 08/11/2009 296.7 BIPOLAR I DISORDER MOST RECENT EPISODE (OR CURRENT) UNSPECIFIED 08/11/2009 787.02 NAUSEA ALONE 08/11/2009 EVANGELINA WATERMAN DO 296.7 BIPOLAR I DISORDER MOST RECENT EPISODE (OR CURRENT) UNSPECIFIED 08/11/2009 EVANGELINA WATERMAN DO F 787.02 NAUSEA ALONE 08/11/2009 HASEEB BURGOS APRN 296.7 BIPOLAR I DISORDER MOST RECENT EPISODE (OR CURRENT) UNSPECIFIED 08/11/2009 HASEEB BURGOS APRN 787.02 NAUSEA ALONE 08/11/2009 VIDYA GARCIA PSYD 296.7 BIPOLAR I DISORDER MOST RECENT EPISODE (OR CURRENT) UNSPECIFIED 08/11/2009 VIDYA GARCIA PSYD 787.02 NAUSEA ALONE 08/11/2009 HASEEB BURGOS APRN 296.7 BIPOLAR I DISORDER MOST RECENT EPISODE (OR CURRENT) UNSPECIFIED 08/11/2009 HASEEB BURGOS APRN 787.02 NAUSEA ALONE 08/11/2009 BALA SUTTON MD 296.7 BIPOLAR I DISORDER MOST RECENT EPISODE (OR CURRENT) UNSPECIFIED 08/11/2009 BALA SUTTON MD 787.02 NAUSEA ALONE 08/11/2009 HASEEB BURGOS APRN 296.7 BIPOLAR I DISORDER MOST RECENT EPISODE (OR CURRENT) UNSPECIFIED 08/11/2009 HASEEB BURGOS APRN 787.02 NAUSEA ALONE 08/11/2009 BALA SUTTON MD 296.7 BIPOLAR I DISORDER MOST RECENT EPISODE (OR CURRENT) UNSPECIFIED 08/11/2009 BALA SUTTON MD 787.02 NAUSEA ALONE 08/11/2009 HASEEB BURGOS APRN 296.7 BIPOLAR I DISORDER MOST RECENT EPISODE (OR CURRENT) UNSPECIFIED 08/11/2009 HASEEB BURGOS APRN 787.02 NAUSEA ALONE 08/11/2009 TRANG ARTIFICIAL BREEDING TECHNICIAN, EVAN 296.7 BIPOLAR I DISORDER MOST RECENT EPISODE (OR CURRENT) UNSPECIFIED 08/11/2009 TRANG BUI, EVAN 787.02 NAUSEA ALONE 09/07/2009 716.90 Arthritis/ Arthropathy, Unspecified 09/07/2009 EVANGELINA WATERMAN DO 716.90 Arthritis/ Arthropathy, Unspecified 09/07/2009 VIDYA GARCIA PSYD 716.90 Arthritis/ Arthropathy, Unspecified 09/07/2009 VIDYA GARCIA PSYD 716.90 Arthritis/ Arthropathy, Unspecified 09/07/2009 EVANGELINA WATERMAN DO 716.90 Arthritis/ Arthropathy, Unspecified 09/07/2009 716.90 Arthritis/ Arthropathy, Unspecified 09/07/2009 716.90 Arthritis/ Arthropathy, Unspecified 09/07/2009 716.90 Arthritis/ Arthropathy, Unspecified 09/07/2009 716.90 Arthritis/ Arthropathy, Unspecified 09/07/2009 716.90 Arthritis/ Arthropathy, Unspecified 09/07/2009 716.90 Arthritis/ Arthropathy, Unspecified 09/07/2009 716.90 Arthritis/ Arthropathy, Unspecified 09/07/2009 716.90 Arthritis/ Arthropathy, Unspecified 09/07/2009 EVANGELINA WATERMAN DO 716.90 Arthritis/ Arthropathy, Unspecified 09/07/2009 LORETTA BUI, HASEEB EVANS 716.90 Arthritis/ Arthropathy, Unspecified 09/07/2009 VIDYA GARCIA PSYD 716.90 Arthritis/ Arthropathy, Unspecified 09/07/2009 LORETTA BUI, HASEEB EVANS 716.90 Arthritis/ Arthropathy, Unspecified 09/07/2009 BALA SUTTON MD 716.90 Arthritis/ Arthropathy, Unspecified 09/07/2009 LORETTA BUI, HASEEB EVANS 716.90 Arthritis/ Arthropathy, Unspecified 09/07/2009 LESLEY FUENTES, BALA 716.90 Arthritis/ Arthropathy, Unspecified 09/07/2009 LORETTA BUI, HASEEB EVANS 716.90 Arthritis/ Arthropathy, Unspecified 09/07/2009 TRANG BUI, EVAN 716.90 Arthritis/ Arthropathy, Unspecified 11/12/2009 296.40 MO BIPOLAR MANIC UNSPECIFIED 11/12/2009 300.01 AN PANIC DIS W/O AGORA 11/12/2009 300.23 An Social Phobia 11/12/2009 307.47 Si Dyssomnia Nos 11/12/2009 GUEVARA COREY EVANGELINA F 296.40 MO BIPOLAR MANIC UNSPECIFIED 11/12/2009 GUEVARA COREY EVANGELINA F 300.01 AN PANIC DIS W/O AGORA 11/12/2009 GUEVARA COREY EVANGELINA F 300.23 An Social Phobia 11/12/2009 EVANGELINA WATERMAN DO F 307.47 Si Dyssomnia Nos 11/12/2009 VIDYA GARCIA PSYD ANN L 296.40 MO BIPOLAR MANIC UNSPECIFIED 11/12/2009 RADHA AMATO ANETA L 300.01 AN PANIC DIS W/O AGORA 11/12/2009 RADHA AMATO ANETA L 300.23 An Social Phobia 11/12/2009 VIDYA GARCIA PSYD ANN L 307.47 Si Dyssomnia Nos 11/12/2009 RADHA AMATO ANETA L 296.40 MO BIPOLAR MANIC UNSPECIFIED 11/12/2009 RADHA AMATO ANETA L 300.01 AN PANIC DIS W/O AGORA 11/12/2009 VIDYA GARCIA PSYD ANN L 300.23 An Social Phobia 11/12/2009 VIDYA GARCIA PSYD ANN L 307.47 Si Dyssomnia Nos 11/12/2009 GUEVARA COREY EVANGELINA F 296.40 MO BIPOLAR MANIC UNSPECIFIED 11/12/2009 EVANGELINA WATERMAN DO F 300.01 AN PANIC DIS W/O AGORA 11/12/2009 EVANGELINA WATERMAN DO F 300.23 An Social Phobia 11/12/2009 EVANGELINA WATERMAN DO F 307.47 Si Dyssomnia Nos 11/12/2009 296.40 MO BIPOLAR MANIC UNSPECIFIED 11/12/2009 300.01 AN PANIC DIS W/O AGORA 11/12/2009 300.23 An Social Phobia 11/12/2009 307.47 Si Dyssomnia Nos 11/12/2009 296.40 MO BIPOLAR MANIC UNSPECIFIED 11/12/2009 300.01 AN PANIC DIS W/O AGORA 11/12/2009 300.23 An Social Phobia 11/12/2009 307.47 Si Dyssomnia Nos 11/12/2009 296.40 MO BIPOLAR MANIC UNSPECIFIED 11/12/2009 300.01 AN PANIC DIS W/O AGORA 11/12/2009 300.23 An Social Phobia 11/12/2009 307.47 Si Dyssomnia Nos 11/12/2009 296.40 MO BIPOLAR MANIC UNSPECIFIED 11/12/2009 300.01 AN PANIC DIS W/O AGORA 11/12/2009 300.23 An Social Phobia 11/12/2009 307.47 Si Dyssomnia Nos 11/12/2009 296.40 MO BIPOLAR MANIC UNSPECIFIED 11/12/2009 300.01 AN PANIC DIS W/O AGORA 11/12/2009 300.23 An Social Phobia 11/12/2009 307.47 Si Dyssomnia Nos 11/12/2009 296.40 MO BIPOLAR MANIC UNSPECIFIED 11/12/2009 300.01 AN PANIC DIS W/O AGORA 11/12/2009 300.23 An Social Phobia 11/12/2009 307.47 Si Dyssomnia Nos 11/12/2009 296.40 MO BIPOLAR MANIC UNSPECIFIED 11/12/2009 300.01 AN PANIC DIS W/O AGORA 11/12/2009 300.23 An Social Phobia 11/12/2009 307.47 Si Dyssomnia Nos 11/12/2009 296.40 MO BIPOLAR MANIC UNSPECIFIED 11/12/2009 300.01 AN PANIC DIS W/O AGORA 11/12/2009 300.23 An Social Phobia 11/12/2009 307.47 Si Dyssomnia Nos 11/12/2009 EVANGELINA WATERMAN DO F 296.40 MO BIPOLAR MANIC UNSPECIFIED 11/12/2009 EVANGELINA WATERMAN DO 300.01 AN PANIC DIS W/O AGORA 11/12/2009 EVANGELINA WATERMAN DO 300.23 An Social Phobia 11/12/2009 EVANGELINA WATERMAN DO 307.47 Si Dyssomnia Nos 11/12/2009 HASEEB BURGOS APRN 296.40 MO BIPOLAR MANIC UNSPECIFIED 11/12/2009 HASEEB BURGOS APRN 300.01 AN PANIC DIS W/O AGORA 11/12/2009 HASEEB BURGOS APRN 300.23 An Social Phobia 11/12/2009 BURGOS HAO HASEEB CRISTINA 307.47 Si Dyssomnia Nos 11/12/2009 RADHA AMATO, ANETA L 296.40 MO BIPOLAR MANIC UNSPECIFIED 11/12/2009 RADHA AMATO, ANETA L 300.01 AN PANIC DIS W/O AGORA 11/12/2009 RADHA AMATO ANETA L 300.23 An Social Phobia 11/12/2009 RADHA AMATO, ANETA L 307.47 Si Dyssomnia Nos 11/12/2009 BURGOS APRN, HASEEB CRISTINA 296.40 MO BIPOLAR MANIC UNSPECIFIED 11/12/2009 LORETTA BUI HASEEB CRISTINA 300.01 AN PANIC DIS W/O AGORA 11/12/2009 LORETTA BUI HASEEB CRISTINA 300.23 An Social Phobia 11/12/2009 HASEEB BURGOS APRN 307.47 Si Dyssomnia Nos 11/12/2009 BALA SUTTON MD 296.40 MO BIPOLAR MANIC UNSPECIFIED 11/12/2009 BALA SUTTON MD 300.01 AN PANIC DIS W/O AGORA 11/12/2009 BALA SUTTON MD 300.23 An Social Phobia 11/12/2009 BALA SUTTON MD 307.47 Si Dyssomnia Nos 11/12/2009 HASEEB BURGOS APRN 296.40 MO BIPOLAR MANIC UNSPECIFIED 11/12/2009 HASEEB BURGOS APRN 300.01 AN PANIC DIS W/O AGORA 11/12/2009 HASEEB BURGOS APRN 300.23 An Social Phobia 11/12/2009 HASEEB BURGOS APRN 307.47 Si Dyssomnia Nos 11/12/2009 BALA SUTTON MD 296.40 MO BIPOLAR MANIC UNSPECIFIED 11/12/2009 BALA SUTTON MD 300.01 AN PANIC DIS W/O AGORA 11/12/2009 BALA SUTTON MD 300.23 An Social Phobia 11/12/2009 BALA SUTTON MD 307.47 Si Dyssomnia Nos 11/12/2009 HASEEB BURGOS APRN 296.40 MO BIPOLAR MANIC UNSPECIFIED 11/12/2009 LORETTA BUIHASEEB 300.01 AN PANIC DIS W/O AGORA 11/12/2009 HASEEB BURGOS APRN 300.23 An Social Phobia 11/12/2009 LORETTA LOVENHASEEB 307.47 Si Dyssomnia Nos 11/12/2009 TRANG ARTIFICIAL BREEDING TECHNICIAN, EVAN 296.40 MO BIPOLAR MANIC UNSPECIFIED 11/12/2009 TRANG ARTIFICIAL BREEDING TECHNICIAN, EVAN 300.01 AN PANIC DIS W/O AGORA 11/12/2009 TRANG ARTIFICIAL BREEDING TECHNICIAN, EVAN 300.23 An Social Phobia 11/12/2009 TRANG ARTIFICIAL BREEDING TECHNICIAN, EVAN 307.47 Si Dyssomnia Nos 11/26/2009 V58.69 LONG-TERM (CURRENT) USE OF OTHER MEDICATIONS 11/26/2009 EVANGELINA WATERMAN DO V58.69 LONG-TERM (CURRENT) USE OF OTHER MEDICATIONS 11/26/2009 VIDYA GARCIA PSYD V58.69 LONG-TERM (CURRENT) USE OF OTHER MEDICATIONS 11/26/2009 VIDYA GARCIA PSYD V58.69 LONG-TERM (CURRENT) USE OF OTHER MEDICATIONS 11/26/2009 EVANGELINA WATERMAN DO V58.69 LONG-TERM (CURRENT) USE OF OTHER MEDICATIONS 11/26/2009 V58.69 LONG-TERM (CURRENT) USE OF OTHER MEDICATIONS 11/26/2009 V58.69 LONG-TERM (CURRENT) USE OF OTHER MEDICATIONS 11/26/2009 V58.69 LONG-TERM (CURRENT) USE OF OTHER MEDICATIONS 11/26/2009 V58.69 LONG-TERM (CURRENT) USE OF OTHER MEDICATIONS 11/26/2009 V58.69 LONG-TERM (CURRENT) USE OF OTHER MEDICATIONS 11/26/2009 V58.69 LONG-TERM (CURRENT) USE OF OTHER MEDICATIONS 11/26/2009 V58.69 LONG-TERM (CURRENT) USE OF OTHER MEDICATIONS 11/26/2009 V58.69 LONG-TERM (CURRENT) USE OF OTHER MEDICATIONS 11/26/2009 EVANGELINA WATERMAN DO V58.69 LONG-TERM (CURRENT) USE OF OTHER MEDICATIONS 11/26/2009 LORETTA BUIHASEEB V58.69 LONG-TERM (CURRENT) USE OF OTHER MEDICATIONS 11/26/2009 VIDYA GARCIA PSYD V58.69 LONG-TERM (CURRENT) USE OF OTHER MEDICATIONS 11/26/2009 HASEEB BURGOS APRN V58.69 LONG-TERM (CURRENT) USE OF OTHER MEDICATIONS 11/26/2009 BALA SUTTON MD V58.69 LONG-TERM (CURRENT) USE OF OTHER MEDICATIONS 11/26/2009 HASEEB BURGOS APRN V58.69 LONG-TERM (CURRENT) USE OF OTHER MEDICATIONS 11/26/2009 BALA SUTTON MD V58.69 LONG-TERM (CURRENT) USE OF OTHER MEDICATIONS 11/26/2009 HASEEB BURGOS APRN V58.69 LONG-TERM (CURRENT) USE OF OTHER MEDICATIONS 11/26/2009 EVAN COSTELLO APRN V58.69 LONG-TERM (CURRENT) USE OF OTHER MEDICATIONS 12/11/2009 296.89 MO BIPOLAR II 12/11/2009 EVANGELINA WATERMAN DO 296.89 MO BIPOLAR II 12/11/2009 VIDYA GARCIA PSYD 296.89 MO BIPOLAR II 12/11/2009 VIDYA GARCIA PSYD 296.89 MO BIPOLAR II 12/11/2009 EVANGELINA WATERMAN DO 296.89 MO BIPOLAR II 12/11/2009 296.89 MO BIPOLAR II 12/11/2009 296.89 MO BIPOLAR II 12/11/2009 296.89 MO BIPOLAR II 12/11/2009 296.89 MO BIPOLAR II 12/11/2009 296.89 MO BIPOLAR II 12/11/2009 296.89 MO BIPOLAR II 12/11/2009 296.89 MO BIPOLAR II 12/11/2009 296.89 MO BIPOLAR II 12/11/2009 EVANGELINA WATERMAN DO 296.89 MO BIPOLAR II 12/11/2009 HASEEB BURGOS APRN 296.89 MO BIPOLAR II 12/11/2009 VIDYA GARCIA PSYD 296.89 MO BIPOLAR II 12/11/2009 HASEEB BURGOS APRN 296.89 MO BIPOLAR II 12/11/2009 BALA SUTTON MD 296.89 MO BIPOLAR II 12/11/2009 HASEEB BURGOS APRN 296.89 MO BIPOLAR II 12/11/2009 BALA SUTTON MD 296.89 MO BIPOLAR II 12/11/2009 HASEEB BURGOS APRN 296.89 MO BIPOLAR II 12/11/2009 EVAN COSTELLO APRN 296.89 MO BIPOLAR II 12/15/2009 296.50 MO BIPOLAR I DEPRESSED UNSPECIFIED 12/15/2009 EVANGELINA WATERMAN DO 296.50 MO BIPOLAR I DEPRESSED UNSPECIFIED 12/15/2009 VIDYA GARCIA PSYD 296.50 MO BIPOLAR I DEPRESSED UNSPECIFIED 12/15/2009 VIDYA GARCIA PSYD 296.50 MO BIPOLAR I DEPRESSED UNSPECIFIED 12/15/2009 EVANGELINA WATERMAN DO 296.50 MO BIPOLAR I DEPRESSED UNSPECIFIED 12/15/2009 296.50 MO BIPOLAR I DEPRESSED UNSPECIFIED 12/15/2009 296.50 MO BIPOLAR I DEPRESSED UNSPECIFIED 12/15/2009 296.50 MO BIPOLAR I DEPRESSED UNSPECIFIED 12/15/2009 296.50 MO BIPOLAR I DEPRESSED UNSPECIFIED 12/15/2009 296.50 MO BIPOLAR I DEPRESSED UNSPECIFIED 12/15/2009 296.50 MO BIPOLAR I DEPRESSED UNSPECIFIED 12/15/2009 296.50 MO BIPOLAR I DEPRESSED UNSPECIFIED 12/15/2009 296.50 MO BIPOLAR I DEPRESSED UNSPECIFIED 12/15/2009 EVANGELINA WATERMAN DO 296.50 MO BIPOLAR I DEPRESSED UNSPECIFIED 12/15/2009 HASEEB BURGOS APRN 296.50 MO BIPOLAR I DEPRESSED UNSPECIFIED 12/15/2009 VIDYA GARCIA PSYD 296.50 MO BIPOLAR I DEPRESSED UNSPECIFIED 12/15/2009 HASEEB BURGOS APRN 296.50 MO BIPOLAR I DEPRESSED UNSPECIFIED 12/15/2009 BALA SUTTON MD 296.50 MO BIPOLAR I DEPRESSED UNSPECIFIED 12/15/2009 HASEEB BURGOS APRN 296.50 MO BIPOLAR I DEPRESSED UNSPECIFIED 12/15/2009 BALA SUTTON MD 296.50 MO BIPOLAR I DEPRESSED UNSPECIFIED 12/15/2009 HASEEB BURGOS APRN 296.50 MO BIPOLAR I DEPRESSED UNSPECIFIED 12/15/2009 EVAN COSTELLO APRN 296.50 MO BIPOLAR I DEPRESSED UNSPECIFIED 01/12/2010 307.50 EA EATING DISORDER UNSPECIFIED 01/12/2010 EVANGELINA WATERMAN DO 307.50 EA EATING DISORDER UNSPECIFIED 01/12/2010 VIDYA GARCIA PSYD 307.50 EA EATING DISORDER UNSPECIFIED 01/12/2010 VIDYA GARCIA PSYD 307.50 EA EATING DISORDER UNSPECIFIED 01/12/2010 EVANGELINA WATERMAN DO 307.50 EA EATING DISORDER UNSPECIFIED 01/12/2010 307.50 EA EATING DISORDER UNSPECIFIED 01/12/2010 307.50 EA EATING DISORDER UNSPECIFIED 01/12/2010 307.50 EA EATING DISORDER UNSPECIFIED 01/12/2010 307.50 EA EATING DISORDER UNSPECIFIED 01/12/2010 307.50 EA EATING DISORDER UNSPECIFIED 01/12/2010 307.50 EA EATING DISORDER UNSPECIFIED 01/12/2010 307.50 EA EATING DISORDER UNSPECIFIED 01/12/2010 307.50 EA EATING DISORDER UNSPECIFIED 01/12/2010 EVANGELINA WATERMAN DO 307.50 EA EATING DISORDER UNSPECIFIED 01/12/2010 HASEEB BURGOS APRN 307.50 EA EATING DISORDER UNSPECIFIED 01/12/2010 VIDYA GARCIA PSYD 307.50 EA EATING DISORDER UNSPECIFIED 01/12/2010 HASEEB BURGOS APRN 307.50 EA EATING DISORDER UNSPECIFIED 01/12/2010 BALA SUTTON MD 307.50 EA EATING DISORDER UNSPECIFIED 01/12/2010 HASEEB BURGOS APRN 307.50 EA EATING DISORDER UNSPECIFIED 01/12/2010 BALA SUTTON MD 307.50 EA EATING DISORDER UNSPECIFIED 01/12/2010 HASEEB BURGOS APRN 307.50 EA EATING DISORDER UNSPECIFIED 01/12/2010 EVAN COSTELLO APRN 307.50 EA EATING DISORDER UNSPECIFIED 01/14/2010 296.30 MO DEPRESSIVE RECURRENT UNSPECIFIED 01/14/2010 EVANGELINA WATERMAN DO 296.30 MO DEPRESSIVE RECURRENT UNSPECIFIED 01/14/2010 VIDYA GARCIA PSYD 296.30 MO DEPRESSIVE RECURRENT UNSPECIFIED 01/14/2010 VIDYA GARCIA PSYD 296.30 MO DEPRESSIVE RECURRENT UNSPECIFIED 01/14/2010 EVANGELINA WATERMAN DO 296.30 MO DEPRESSIVE RECURRENT UNSPECIFIED 01/14/2010 296.30 MO DEPRESSIVE RECURRENT UNSPECIFIED 01/14/2010 296.30 MO DEPRESSIVE RECURRENT UNSPECIFIED 01/14/2010 296.30 MO DEPRESSIVE RECURRENT UNSPECIFIED 01/14/2010 296.30 MO DEPRESSIVE RECURRENT UNSPECIFIED 01/14/2010 296.30 MO DEPRESSIVE RECURRENT UNSPECIFIED 01/14/2010 296.30 MO DEPRESSIVE RECURRENT UNSPECIFIED 01/14/2010 296.30 MO DEPRESSIVE RECURRENT UNSPECIFIED 01/14/2010 296.30 MO DEPRESSIVE RECURRENT UNSPECIFIED 01/14/2010 EVANGELINA WATERMAN DO F 296.30 MO DEPRESSIVE RECURRENT UNSPECIFIED 01/14/2010 LORETTA BUI, HASEEB EVANS 296.30 MO DEPRESSIVE RECURRENT UNSPECIFIED 01/14/2010 VIDYA GARCIA PSYD ANN L 296.30 MO DEPRESSIVE RECURRENT UNSPECIFIED 01/14/2010 LORETTA BUI, HASEEB CRISTINA 296.30 MO DEPRESSIVE RECURRENT UNSPECIFIED 01/14/2010 BALA SUTTON MD 296.30 MO DEPRESSIVE RECURRENT UNSPECIFIED 01/14/2010 LORETTA BUI, HASEEB CRISTINA 296.30 MO DEPRESSIVE RECURRENT UNSPECIFIED 01/14/2010 BALA SUTTON MD 296.30 MO DEPRESSIVE RECURRENT UNSPECIFIED 01/14/2010 LORETTA BUI, HASEEB CRISTINA 296.30 MO DEPRESSIVE RECURRENT UNSPECIFIED 01/14/2010 EVAN COSTELLO APRN 296.30 MO DEPRESSIVE RECURRENT UNSPECIFIED 02/23/2010 599.0 Urinary Tract Infection 02/23/2010 EVANGELINA WATERMAN DO F 599.0 Urinary Tract Infection 02/23/2010 VIDYA GARCIA PSYD ANN L 599.0 Urinary Tract Infection 02/23/2010 VIDYA GARCIA PSYD ANN L 599.0 Urinary Tract Infection 02/23/2010 EVANGELINA WATERMAN DO F 599.0 Urinary Tract Infection 02/23/2010 599.0 Urinary Tract Infection 02/23/2010 599.0 Urinary Tract Infection 02/23/2010 599.0 Urinary Tract Infection 02/23/2010 599.0 Urinary Tract Infection 02/23/2010 599.0 Urinary Tract Infection 02/23/2010 599.0 Urinary Tract Infection 02/23/2010 599.0 Urinary Tract Infection 02/23/2010 599.0 Urinary Tract Infection 02/23/2010 EVANGELINA WATERMAN DO F 599.0 Urinary Tract Infection 02/23/2010 LORETTA BUI HASEEB CRISTINA 599.0 Urinary Tract Infection 02/23/2010 VIDYA GARCIA PSYD ANN L 599.0 Urinary Tract Infection 02/23/2010 LORETTA BUI HASEEB CRISTINA 599.0 Urinary Tract Infection 02/23/2010 BALA SUTTON MD 599.0 Urinary Tract Infection 02/23/2010 LORETTA BUI, HASEEB EVANS 599.0 Urinary Tract Infection 02/23/2010 LESLEY FUENTES, BALA 599.0 Urinary Tract Infection 02/23/2010 LORETTA BUI, HASEEB EVANS 599.0 Urinary Tract Infection 02/23/2010 TRANG BUI, EVAN 599.0 Urinary Tract Infection 06/01/2010 NODX No Diagnosis 06/01/2010 GUEVARA COREY EVANGELINA F NODX No Diagnosis 06/01/2010 VIDYA GARCIA PSYD ANN L NODX No Diagnosis 06/01/2010 VIDYA GARCIA PSYD ANN L NODX No Diagnosis 06/01/2010 GUEVARA COREY EVANGELINA Nam NODX No Diagnosis 06/01/2010 NODX No Diagnosis 06/01/2010 NODX No Diagnosis 06/01/2010 NODX No Diagnosis 06/01/2010 NODX No Diagnosis 06/01/2010 NODX No Diagnosis 06/01/2010 NODX No Diagnosis 06/01/2010 NODX No Diagnosis 06/01/2010 NODX No Diagnosis 06/01/2010 GUEVARA COREY EVANGELINA Nam NODX No Diagnosis 06/01/2010 LORETTA BUI, HASEEB EVANS NODX No Diagnosis 06/01/2010 VIDYA GARCIA PSYD L NODX No Diagnosis 06/01/2010 LORETTA BUI, HASEEB EVANS NODX No Diagnosis 06/01/2010 BALA SUTTON MD NODX No Diagnosis 06/01/2010 LORETTA BUI, HASEEB EVANS NODX No Diagnosis 06/01/2010 BALA SUTTON MD NODX No Diagnosis 06/01/2010 LORETTA BUI, HASEEB EVANS NODX No Diagnosis 06/01/2010 EVAN COSTELLO APRN NODX No Diagnosis 07/12/2010 530.11 REFLUX ESOPHAGITIS 07/12/2010 EVANGELINA WATERMAN DO 530.11 REFLUX ESOPHAGITIS 07/12/2010 VIDYA GARCIA PSYD 530.11 REFLUX ESOPHAGITIS 07/12/2010 VIDYA GARCIA PSYD L 530.11 REFLUX ESOPHAGITIS 07/12/2010 EVANGELINA WATERMAN DO 530.11 REFLUX ESOPHAGITIS 07/12/2010 530.11 REFLUX ESOPHAGITIS 07/12/2010 530.11 REFLUX ESOPHAGITIS 07/12/2010 530.11 REFLUX ESOPHAGITIS 07/12/2010 530.11 REFLUX ESOPHAGITIS 07/12/2010 530.11 REFLUX ESOPHAGITIS 07/12/2010 530.11 REFLUX ESOPHAGITIS 07/12/2010 530.11 REFLUX ESOPHAGITIS 07/12/2010 530.11 REFLUX ESOPHAGITIS 07/12/2010 EVANGELINA WATERMAN DO 530.11 REFLUX ESOPHAGITIS 07/12/2010 BURGOSARIA BUI, HASEEB MAGUIREH 530.11 REFLUX ESOPHAGITIS 07/12/2010 VIDYA GARCIA PSYD 530.11 REFLUX ESOPHAGITIS 07/12/2010 BURGOS ARTIFICIAL BREEDING TECHNICIAN, HASEEB EVANS 530.11 REFLUX ESOPHAGITIS 07/12/2010 BALA SUTTON MD 530.11 REFLUX ESOPHAGITIS 07/12/2010 BURGOSARIA BUI, HASEEB CRISTINA 530.11 REFLUX ESOPHAGITIS 07/12/2010 BALA SUTTON MD 530.11 REFLUX ESOPHAGITIS 07/12/2010 LORETTA BUI HASEEB CRISTINA 530.11 REFLUX ESOPHAGITIS 07/12/2010 EVAN COSTELLO APRN 530.11 REFLUX ESOPHAGITIS 07/27/2010 303.90 Other And Unspecified Alcohol Dependence Unspecified Drinking Behavior 07/27/2010 EVANGELINA WATERMAN DO 303.90 Other And Unspecified Alcohol Dependence Unspecified Drinking Behavior 07/27/2010 VIDYA GARCIA PSYD 303.90 Other And Unspecified Alcohol Dependence Unspecified Drinking Behavior 07/27/2010 VIDYA GARCIA PSYD 303.90 Other And Unspecified Alcohol Dependence Unspecified Drinking Behavior 07/27/2010 EVANGELINA WATERMAN DO 303.90 Other And Unspecified Alcohol Dependence Unspecified Drinking Behavior 07/27/2010 303.90 Other And Unspecified Alcohol Dependence Unspecified Drinking Behavior 07/27/2010 303.90 Other And Unspecified Alcohol Dependence Unspecified Drinking Behavior 07/27/2010 303.90 Other And Unspecified Alcohol Dependence Unspecified Drinking Behavior 07/27/2010 303.90 Other And Unspecified Alcohol Dependence Unspecified Drinking Behavior 07/27/2010 303.90 Other And Unspecified Alcohol Dependence Unspecified Drinking Behavior 07/27/2010 303.90 Other And Unspecified Alcohol Dependence Unspecified Drinking Behavior 07/27/2010 303.90 Other And Unspecified Alcohol Dependence Unspecified Drinking Behavior 07/27/2010 303.90 Other And Unspecified Alcohol Dependence Unspecified Drinking Behavior 07/27/2010 EVANGELINA WATERMAN DO 303.90 Other And Unspecified Alcohol Dependence Unspecified Drinking Behavior 07/27/2010 LORETTA BUI HASEEB CRISTINA 303.90 Other And Unspecified Alcohol Dependence Unspecified Drinking Behavior 07/27/2010 VIDYA GARCIA PSYD 303.90 Other And Unspecified Alcohol Dependence Unspecified Drinking Behavior 07/27/2010 HASEEB BURGOS APRN 303.90 Other And Unspecified Alcohol Dependence Unspecified Drinking Behavior 07/27/2010 BALA SUTTON MD 303.90 Other And Unspecified Alcohol Dependence Unspecified Drinking Behavior 07/27/2010 HASEEB BURGOS APRN 303.90 Other And Unspecified Alcohol Dependence Unspecified Drinking Behavior 07/27/2010 BALA SUTTON MD 303.90 Other And Unspecified Alcohol Dependence Unspecified Drinking Behavior 07/27/2010 HASEEB BURGOS APRN 303.90 Other And Unspecified Alcohol Dependence Unspecified Drinking Behavior 07/27/2010 EVAN COSTELLO APRN 303.90 Other And Unspecified Alcohol Dependence Unspecified Drinking Behavior 09/07/2010 307.51 Bulimia Nervosa 09/07/2010 EVANGELINA WATERMAN DO 307.51 Bulimia Nervosa 09/07/2010 VIDYA GARCIA PSYD 307.51 Bulimia Nervosa 09/07/2010 VIDYA GARCIA PSYD 307.51 Bulimia Nervosa 09/07/2010 EVANGELINA WATERMAN DO 307.51 Bulimia Nervosa 09/07/2010 307.51 Bulimia Nervosa 09/07/2010 307.51 Bulimia Nervosa 09/07/2010 307.51 Bulimia Nervosa 09/07/2010 307.51 Bulimia Nervosa 09/07/2010 307.51 Bulimia Nervosa 09/07/2010 307.51 Bulimia Nervosa 09/07/2010 307.51 Bulimia Nervosa 09/07/2010 307.51 Bulimia Nervosa 09/07/2010 EVANGELINA WATERMAN DO 307.51 Bulimia Nervosa 09/07/2010 HASEEB BURGOS APRN 307.51 Bulimia Nervosa 09/07/2010 VIDYA GARCIA PSYD 307.51 Bulimia Nervosa 09/07/2010 HASEEB BURGOS APRN 307.51 Bulimia Nervosa 09/07/2010 BALA SUTTON MD 307.51 Bulimia Nervosa 09/07/2010 HASEEB BURGOS APRN 307.51 Bulimia Nervosa 09/07/2010 BALA SUTTON MD 307.51 Bulimia Nervosa 09/07/2010 HASEEB BURGOS APRN 307.51 Bulimia Nervosa 09/07/2010 EVAN COSTELLO APRN 307.51 Bulimia Nervosa 10/22/2010 296.51 MO BIPOLAR I DEPRESSED MILD 10/22/2010 EVANGELINA WATERMAN DO 296.51 MO BIPOLAR I DEPRESSED MILD 10/22/2010 VIDYA GARCIA PSYD 296.51 MO BIPOLAR I DEPRESSED MILD 10/22/2010 VIDYA GARCIA PSYD 296.51 MO BIPOLAR I DEPRESSED MILD 10/22/2010 EVANGELINA WATERMAN DO F 296.51 MO BIPOLAR I DEPRESSED MILD 10/22/2010 296.51 MO BIPOLAR I DEPRESSED MILD 10/22/2010 296.51 MO BIPOLAR I DEPRESSED MILD 10/22/2010 296.51 MO BIPOLAR I DEPRESSED MILD 10/22/2010 296.51 MO BIPOLAR I DEPRESSED MILD 10/22/2010 296.51 MO BIPOLAR I DEPRESSED MILD 10/22/2010 296.51 MO BIPOLAR I DEPRESSED MILD 10/22/2010 296.51 MO BIPOLAR I DEPRESSED MILD 10/22/2010 296.51 MO BIPOLAR I DEPRESSED MILD 10/22/2010 EVANGELINA WATERMAN DO F 296.51 MO BIPOLAR I DEPRESSED MILD 10/22/2010 HASEEB BURGOS APRN 296.51 MO BIPOLAR I DEPRESSED MILD 10/22/2010 VIDYA GARCIA PSYD 296.51 MO BIPOLAR I DEPRESSED MILD 10/22/2010 HASEEB BURGOS APRN 296.51 MO BIPOLAR I DEPRESSED MILD 10/22/2010 BALA SUTTON MD 296.51 MO BIPOLAR I DEPRESSED MILD 10/22/2010 HASEEB BURGOS APRN 296.51 MO BIPOLAR I DEPRESSED MILD 10/22/2010 BALA SUTTON MD 296.51 MO BIPOLAR I DEPRESSED MILD 10/22/2010 HASEEB BURGOS APRN 296.51 MO BIPOLAR I DEPRESSED MILD 10/22/2010 TRANG ARTIFICIAL BREEDING TECHNICIAN, EVAN 296.51 MO BIPOLAR I DEPRESSED MILD 11/11/2011 Ot 379.91 PAIN IN OR AROUND EYE 11/11/2011 Ot 918.1 SUPERFICIAL INJ CORNEA 11/11/2011 Ot E000.8 OTHER EXTERNAL CAUSE STATUS 11/11/2011 Ot E849.0 ACCIDENT IN HOME 11/11/2011 Ot E928.9 ACCIDENT NOS 12/01/2011 296.42 MO BIPOLAR I MANIC MODERATE 12/01/2011 303.90 Other And Unspecified Alcohol Dependence Unspecified Drinking Behavior 12/01/2011 307.51 Bulimia Nervosa 12/01/2011 EVANGELINA WATERMAN DO 296.42 MO BIPOLAR I MANIC MODERATE 12/01/2011 EVANGELINA WATERMAN DO 303.90 Other And Unspecified Alcohol Dependence Unspecified Drinking Behavior 12/01/2011 EVANGELINA WATERMAN DO 307.51 Bulimia Nervosa 12/01/2011 VIDYA GARCIA PSYD 296.42 MO BIPOLAR I MANIC MODERATE 12/01/2011 VIDYA GARCIA PSYD L 303.90 Other And Unspecified Alcohol Dependence Unspecified Drinking Behavior 12/01/2011 VIDYA GARCIA PSYD 307.51 Bulimia Nervosa 12/01/2011 VIDYA GARCIA PSYD L 296.42 MO BIPOLAR I MANIC MODERATE 12/01/2011 VIDYA GARCIA PSYD 303.90 Other And Unspecified Alcohol Dependence Unspecified Drinking Behavior 12/01/2011 VIDYA GARCIA PSYD 307.51 Bulimia Nervosa 12/01/2011 EVANGELINA WATERMAN DO 296.42 MO BIPOLAR I MANIC MODERATE 12/01/2011 EVANGELINA WATERMAN DO 303.90 Other And Unspecified Alcohol Dependence Unspecified Drinking Behavior 12/01/2011 EVANGELINA WATERMAN DO 307.51 Bulimia Nervosa 12/01/2011 296.42 MO BIPOLAR I MANIC MODERATE 12/01/2011 303.90 Other And Unspecified Alcohol Dependence Unspecified Drinking Behavior 12/01/2011 307.51 Bulimia Nervosa 12/01/2011 296.42 MO BIPOLAR I MANIC MODERATE 12/01/2011 303.90 Other And Unspecified Alcohol Dependence Unspecified Drinking Behavior 12/01/2011 307.51 Bulimia Nervosa 12/01/2011 296.42 MO BIPOLAR I MANIC MODERATE 12/01/2011 303.90 Other And Unspecified Alcohol Dependence Unspecified Drinking Behavior 12/01/2011 307.51 Bulimia Nervosa 12/01/2011 296.42 MO BIPOLAR I MANIC MODERATE 12/01/2011 303.90 Other And Unspecified Alcohol Dependence Unspecified Drinking Behavior 12/01/2011 307.51 Bulimia Nervosa 12/01/2011 296.42 MO BIPOLAR I MANIC MODERATE 12/01/2011 303.90 Other And Unspecified Alcohol Dependence Unspecified Drinking Behavior 12/01/2011 307.51 Bulimia Nervosa 12/01/2011 296.42 MO BIPOLAR I MANIC MODERATE 12/01/2011 303.90 Other And Unspecified Alcohol Dependence Unspecified Drinking Behavior 12/01/2011 307.51 Bulimia Nervosa 12/01/2011 296.42 MO BIPOLAR I MANIC MODERATE 12/01/2011 303.90 Other And Unspecified Alcohol Dependence Unspecified Drinking Behavior 12/01/2011 307.51 Bulimia Nervosa 12/01/2011 296.42 MO BIPOLAR I MANIC MODERATE 12/01/2011 303.90 Other And Unspecified Alcohol Dependence Unspecified Drinking Behavior 12/01/2011 307.51 Bulimia Nervosa 12/01/2011 EVANGELINA WATERMAN DO 296.42 MO BIPOLAR I MANIC MODERATE 12/01/2011 EVANGELINA WATERMAN DO 303.90 Other And Unspecified Alcohol Dependence Unspecified Drinking Behavior 12/01/2011 EVANGELINA WATERMAN DO F 307.51 Bulimia Nervosa 12/01/2011 HASEEB BURGOS APRN 296.42 MO BIPOLAR I MANIC MODERATE 12/01/2011 HASEEB BURGOS APRN 303.90 Other And Unspecified Alcohol Dependence Unspecified Drinking Behavior 12/01/2011 HASEEB BURGOS APRN 307.51 Bulimia Nervosa 12/01/2011 VIDYA GARCIA PSYD 296.42 MO BIPOLAR I MANIC MODERATE 12/01/2011 VIDYA GARCIA PSYD 303.90 Other And Unspecified Alcohol Dependence Unspecified Drinking Behavior 12/01/2011 VIDYA GARCIA PSYD L 307.51 Bulimia Nervosa 12/01/2011 HASEEB BURGOS APRN 296.42 MO BIPOLAR I MANIC MODERATE 12/01/2011 HASEEB BURGOS APRN 303.90 Other And Unspecified Alcohol Dependence Unspecified Drinking Behavior 12/01/2011 LORETTA BUI HASEEB CRISTINA 307.51 Bulimia Nervosa 12/01/2011 BALA SUTTON MD 296.42 MO BIPOLAR I MANIC MODERATE 12/01/2011 BALA SUTTON MD 303.90 Other And Unspecified Alcohol Dependence Unspecified Drinking Behavior 12/01/2011 BALA SUTTON MD 307.51 Bulimia Nervosa 12/01/2011 HASEEB BURGOS APRN 296.42 MO BIPOLAR I MANIC MODERATE 12/01/2011 HASEEB BURGOS APRN 303.90 Other And Unspecified Alcohol Dependence Unspecified Drinking Behavior 12/01/2011 HASEEB BURGOS APRN 307.51 Bulimia Nervosa 12/01/2011 BALA SUTTON MD 296.42 MO BIPOLAR I MANIC MODERATE 12/01/2011 BALA SUTTON MD 303.90 Other And Unspecified Alcohol Dependence Unspecified Drinking Behavior 12/01/2011 BALA SUTTON MD 307.51 Bulimia Nervosa 12/01/2011 HASEEB BURGOS APRN 296.42 MO BIPOLAR I MANIC MODERATE 12/01/2011 HASEEB BURGOS APRN 303.90 Other And Unspecified Alcohol Dependence Unspecified Drinking Behavior 12/01/2011 HASEEB BURGOS APRN 307.51 Bulimia Nervosa 12/01/2011 EVAN COSTELLO APRN 296.42 MO BIPOLAR I MANIC MODERATE 12/01/2011 EVAN COSTELLO APRN 303.90 Other And Unspecified Alcohol Dependence Unspecified Drinking Behavior 12/01/2011 EVAN COSTELLO APRN 307.51 Bulimia Nervosa 12/16/2011 296.60 MO BIPOLAR I MIXED UNSPECIFIED 12/16/2011 EVANGELINA WATERMAN DO 296.60 MO BIPOLAR I MIXED UNSPECIFIED 12/16/2011 VIDYA GARCIA PSYD 296.60 MO BIPOLAR I MIXED UNSPECIFIED 12/16/2011 VIDYA GARCIA PSYD 296.60 MO BIPOLAR I MIXED UNSPECIFIED 12/16/2011 EVANGELINA WATERMAN DO 296.60 MO BIPOLAR I MIXED UNSPECIFIED 12/16/2011 296.60 MO BIPOLAR I MIXED UNSPECIFIED 12/16/2011 296.60 MO BIPOLAR I MIXED UNSPECIFIED 12/16/2011 296.60 MO BIPOLAR I MIXED UNSPECIFIED 12/16/2011 296.60 MO BIPOLAR I MIXED UNSPECIFIED 12/16/2011 296.60 MO BIPOLAR I MIXED UNSPECIFIED 12/16/2011 296.60 MO BIPOLAR I MIXED UNSPECIFIED 12/16/2011 296.60 MO BIPOLAR I MIXED UNSPECIFIED 12/16/2011 296.60 MO BIPOLAR I MIXED UNSPECIFIED 12/16/2011 EVANGELINA WATERMAN DO F 296.60 MO BIPOLAR I MIXED UNSPECIFIED 12/16/2011 BURGOS ARTIFICIAL BREEDING TECHNICIAN, HASEEB EVANS 296.60 MO BIPOLAR I MIXED UNSPECIFIED 12/16/2011 VIDYA GARCIA PSYD L 296.60 MO BIPOLAR I MIXED UNSPECIFIED 12/16/2011 LORETTA BUI, HASEEB EVANS 296.60 MO BIPOLAR I MIXED UNSPECIFIED 12/16/2011 BALA SUTTON MD 296.60 MO BIPOLAR I MIXED UNSPECIFIED 12/16/2011 BURGOS ARTIFICIAL BREEDING TECHNICIAN, HASEEB EVANS 296.60 MO BIPOLAR I MIXED UNSPECIFIED 12/16/2011 BALA SUTTON MD 296.60 MO BIPOLAR I MIXED UNSPECIFIED 12/16/2011 BURGOSARIA BUI, HASEEB EVANS 296.60 MO BIPOLAR I MIXED UNSPECIFIED 12/16/2011 TRANG ARTIFICIAL BREEDING TECHNICIAN, EVAN 296.60 MO BIPOLAR I MIXED UNSPECIFIED 01/31/2012 596.51 HYPERTONICITY OF BLADDER 01/31/2012 V04.81 FLU DX (3 YRS AND ABOVE, IM) 01/31/2012 EVANGELINA WATERMAN DO 596.51 HYPERTONICITY OF BLADDER 01/31/2012 EVANGELINA WATERMAN DO V04.81 FLU DX (3 YRS AND ABOVE, IM) 01/31/2012 VIDYA GARCIA PSYD ANN L 596.51 HYPERTONICITY OF BLADDER 01/31/2012 VIDYA GARCIA PSYD L V04.81 FLU DX (3 YRS AND ABOVE, IM) 01/31/2012 VIDYA GACRIA PSYD L 596.51 HYPERTONICITY OF BLADDER 01/31/2012 VIDYA GARCIA PSYD L V04.81 FLU DX (3 YRS AND ABOVE, IM) 01/31/2012 EVANGELINA WATERMAN DO F 596.51 HYPERTONICITY OF BLADDER 01/31/2012 EVANGELINA WATERMAN DO V04.81 FLU DX (3 YRS AND ABOVE, IM) 01/31/2012 596.51 HYPERTONICITY OF BLADDER 01/31/2012 V04.81 FLU DX (3 YRS AND ABOVE, IM) 01/31/2012 596.51 HYPERTONICITY OF BLADDER 01/31/2012 V04.81 FLU DX (3 YRS AND ABOVE, IM) 01/31/2012 596.51 HYPERTONICITY OF BLADDER 01/31/2012 V04.81 FLU DX (3 YRS AND ABOVE, IM) 01/31/2012 596.51 HYPERTONICITY OF BLADDER 01/31/2012 V04.81 FLU DX (3 YRS AND ABOVE, IM) 01/31/2012 596.51 HYPERTONICITY OF BLADDER 01/31/2012 V04.81 FLU DX (3 YRS AND ABOVE, IM) 01/31/2012 596.51 HYPERTONICITY OF BLADDER 01/31/2012 V04.81 FLU DX (3 YRS AND ABOVE, IM) 01/31/2012 596.51 HYPERTONICITY OF BLADDER 01/31/2012 V04.81 FLU DX (3 YRS AND ABOVE, IM) 01/31/2012 596.51 HYPERTONICITY OF BLADDER 01/31/2012 V04.81 FLU DX (3 YRS AND ABOVE, IM) 01/31/2012 GUEVARA DO, EVANGELINA F 596.51 HYPERTONICITY OF BLADDER 01/31/2012 CHINONADINE DO, EVANGELINA F V04.81 FLU DX (3 YRS AND ABOVE, IM) 01/31/2012 LORETTA BUI HASEEB CRISTINA 596.51 HYPERTONICITY OF BLADDER 01/31/2012 LORETTA BUI HASEEB CRISTINA V04.81 FLU DX (3 YRS AND ABOVE, IM) 01/31/2012 VIDYA GARCIA PSYD L 596.51 HYPERTONICITY OF BLADDER 01/31/2012 VIDYA GARCIA PSYD L V04.81 FLU DX (3 YRS AND ABOVE, IM) 01/31/2012 HASEEB BURGOS APRN 596.51 HYPERTONICITY OF BLADDER 01/31/2012 LORETTA BUI HASEEB CRISTINA V04.81 FLU DX (3 YRS AND ABOVE, IM) 01/31/2012 BALA SUTTON MD 596.51 HYPERTONICITY OF BLADDER 01/31/2012 BALA SUTTON MD V04.81 FLU DX (3 YRS AND ABOVE, IM) 01/31/2012 LORETTA BUI HASEEB CRISTINA 596.51 HYPERTONICITY OF BLADDER 01/31/2012 LORETTA BUI HASEEB EVANS V04.81 FLU DX (3 YRS AND ABOVE, IM) 01/31/2012 BALA SUTTON MD 596.51 HYPERTONICITY OF BLADDER 01/31/2012 BALA SUTTON MD V04.81 FLU DX (3 YRS AND ABOVE, IM) 01/31/2012 LORETTA BUI HASEEB CRISTINA 596.51 HYPERTONICITY OF BLADDER 01/31/2012 LORETTA BUI HASEEB CRISTINA V04.81 FLU DX (3 YRS AND ABOVE, IM) 01/31/2012 TRANGEVAN CAROLINA APRN 596.51 HYPERTONICITY OF BLADDER 01/31/2012 EVAN COSTELLO APRN V04.81 FLU DX (3 YRS AND ABOVE, IM) 02/13/2012 296.54 MO BIPOLAR I DEPRESSED SEVERE WITH PSYCHOTIC BEHAVIOR 02/13/2012 EVANGELINA WATERMAN DO 296.54 MO BIPOLAR I DEPRESSED SEVERE WITH PSYCHOTIC BEHAVIOR 02/13/2012 VIDYA GARCIA PSYD 296.54 MO BIPOLAR I DEPRESSED SEVERE WITH PSYCHOTIC BEHAVIOR 02/13/2012 VIDYA GARCIA PSYD 296.54 MO BIPOLAR I DEPRESSED SEVERE WITH PSYCHOTIC BEHAVIOR 02/13/2012 EVANGELINA WATERMAN DO 296.54 MO BIPOLAR I DEPRESSED SEVERE WITH PSYCHOTIC BEHAVIOR 02/13/2012 296.54 MO BIPOLAR I DEPRESSED SEVERE WITH PSYCHOTIC BEHAVIOR 02/13/2012 296.54 MO BIPOLAR I DEPRESSED SEVERE WITH PSYCHOTIC BEHAVIOR 02/13/2012 296.54 MO BIPOLAR I DEPRESSED SEVERE WITH PSYCHOTIC BEHAVIOR 02/13/2012 296.54 MO BIPOLAR I DEPRESSED SEVERE WITH PSYCHOTIC BEHAVIOR 02/13/2012 296.54 MO BIPOLAR I DEPRESSED SEVERE WITH PSYCHOTIC BEHAVIOR 02/13/2012 296.54 MO BIPOLAR I DEPRESSED SEVERE WITH PSYCHOTIC BEHAVIOR 02/13/2012 296.54 MO BIPOLAR I DEPRESSED SEVERE WITH PSYCHOTIC BEHAVIOR 02/13/2012 296.54 MO BIPOLAR I DEPRESSED SEVERE WITH PSYCHOTIC BEHAVIOR 02/13/2012 EVANGELINA WATERMAN DO 296.54 MO BIPOLAR I DEPRESSED SEVERE WITH PSYCHOTIC BEHAVIOR 02/13/2012 HASEEB BURGOS APRN 296.54 MO BIPOLAR I DEPRESSED SEVERE WITH PSYCHOTIC BEHAVIOR 02/13/2012 VIDYA GARCIA PSYD 296.54 MO BIPOLAR I DEPRESSED SEVERE WITH PSYCHOTIC BEHAVIOR 02/13/2012 HASEEB BURGOS APRN 296.54 MO BIPOLAR I DEPRESSED SEVERE WITH PSYCHOTIC BEHAVIOR 02/13/2012 BALA SUTTON MD 296.54 MO BIPOLAR I DEPRESSED SEVERE WITH PSYCHOTIC BEHAVIOR 02/13/2012 HASEEB BURGOS APRN 296.54 MO BIPOLAR I DEPRESSED SEVERE WITH PSYCHOTIC BEHAVIOR 02/13/2012 BALA SUTTON MD 296.54 MO BIPOLAR I DEPRESSED SEVERE WITH PSYCHOTIC BEHAVIOR 02/13/2012 HASEEB BURGOS APRN 296.54 MO BIPOLAR I DEPRESSED SEVERE WITH PSYCHOTIC BEHAVIOR 02/13/2012 EVAN COSTELLO APRN 296.54 MO BIPOLAR I DEPRESSED SEVERE WITH PSYCHOTIC BEHAVIOR 2012 780.52 INSOMNIA UNSPECIFIED 2012 EVANGELINA WATERMAN DO 780.52 INSOMNIA UNSPECIFIED 2012 VIDYA GARCIA PSYD 780.52 INSOMNIA UNSPECIFIED 2012 VIDYA GARCIA PSYD 780.52 INSOMNIA UNSPECIFIED 2012 EVANGELINA WATERMAN DO 780.52 INSOMNIA UNSPECIFIED 2012 780.52 INSOMNIA UNSPECIFIED 2012 780.52 INSOMNIA UNSPECIFIED 2012 780.52 INSOMNIA UNSPECIFIED 2012 780.52 INSOMNIA UNSPECIFIED 2012 780.52 INSOMNIA UNSPECIFIED 2012 780.52 INSOMNIA UNSPECIFIED 2012 780.52 INSOMNIA UNSPECIFIED 2012 780.52 INSOMNIA UNSPECIFIED 2012 EVANGELINA WATERMAN DO 780.52 INSOMNIA UNSPECIFIED 2012 HASEEB BURGOS APRN 780.52 INSOMNIA UNSPECIFIED 2012 VIDYA GARCIA PSYD 780.52 INSOMNIA UNSPECIFIED 2012 HASEEB BURGOS APRN 780.52 INSOMNIA UNSPECIFIED 2012 BALA SUTTON MD 780.52 INSOMNIA UNSPECIFIED 2012 HASEEB BURGOS APRN 780.52 INSOMNIA UNSPECIFIED 2012 BALA SUTTON MD 780.52 INSOMNIA UNSPECIFIED 2012 HASEEB BURGOS APRN 780.52 INSOMNIA UNSPECIFIED 2012 EVAN COSTELLO APRN 780.52 INSOMNIA UNSPECIFIED 09/13/2012 JEAN PIERRE BRUSH MD Ot 300.00 ANXIETY STATE NOS 09/13/2012 JEAN PIERRE BRUSH MD Ot 305.1 TOBACCO USE DISORDER 09/13/2012 JEAN PIERRE BRUSH MD Ot 311 DEPRESSIVE DISORDER NEC 09/13/2012 JEAN PIERRE BRUSH MD Ot 530.81 ESOPHAGEAL REFLUX 09/13/2012 JEAN PIERRE BRUSH MD Ot 599.0 URIN TRACT INFECTION NOS 09/13/2012 JEAN PIERRE BRUSH MD Ot 780.97 ALTERED MENTAL STATUS 09/13/2012 JEAN PIERRE BRUSH MD Ot 788.31 URGE INCONTINENCE 09/13/2012 JEAN PIERRE BRUSH MD Ot 968.0 POIS-CASHIER SELF SERVICE GASOLINE MUSCLE DEPRESS 09/13/2012 JEAN PIERRE BRUSH MD Ot E849.0 ACCIDENT IN HOME 09/13/2012 JEAN PIERRE BRUSH MD Ot E855.1 ACC POISN-CASHIER SELF SERVICE GASOLINE DEPRES NEC 09/13/2012 JEAN PIERRE BRUSH MD Ot V62.84 SUICIDAL IDEATION 09/28/2012 RACHEL ONTIVEROS MD Ot 298.9 PSYCHOSIS NOS 09/28/2012 RACHEL ONTIVEROS MD Ot 305.00 ALCOHOL ABUSE-UNSPEC 09/28/2012 RACHEL ONTIVEROS MD Ot 305.1 TOBACCO USE DISORDER 09/28/2012 RACHEL ONTIVEROS MD Ot 530.81 ESOPHAGEAL REFLUX 09/28/2012 RACHEL ONTIVEROS MD Ot 716.90 ARTHROPATHY NOS-UNSPEC 09/28/2012 RACHEL ONTIVEROS MD Ot 968.0 POIS-CASHIER SELF SERVICE GASOLINE MUSCLE DEPRESS 09/28/2012 RACHEL ONTIVEROS MD Ot E950.4 SUICIDE-DRUG/MEDICIN NEC 09/28/2012 RACHEL ONTIVEROS MD Ot V62.84 SUICIDAL IDEATION 11/08/2012 ANAMARIA COREY SHERRI K Ot 305.00 ALCOHOL ABUSE-UNSPEC 11/08/2012 CONRAD DO SHERRI K Ot 305.1 TOBACCO USE DISORDER 11/08/2012 ANAMARIA COREY SHERRI K Ot 427.89 CARDIAC DYSRHYTHMIAS NEC 11/08/2012 CONRAD DO SHERRI K Ot 530.81 ESOPHAGEAL REFLUX 11/08/2012 CONRAD DO SHERRI K Ot 780.09 OTHER ALTERATION OF CONSCIOUSNESS 11/08/2012 ANAMARIA COREY SHERRI K Ot 788.31 URGE INCONTINENCE 11/08/2012 SHERRI CONRAD DO Ot 968.0 POIS-CASHIER SELF SERVICE GASOLINE MUSCLE DEPRESS 11/08/2012 SHERRI CONRAD DO Ot 980.0 TOXIC EFF ETHYL ALCOHOL 11/08/2012 SHERRI CONRAD DO Ot E950.4 SUICIDE-DRUG/MEDICIN NEC 11/08/2012 SHERRI CONRAD DO Ot E950.9 SUICIDE-SOLID/LIQUID NEC 12/18/2012 596.89 OTHER SPECIFIED DISORDERS OF BLADDER 12/18/2012 EVANGELINA WATERMAN DO 596.89 OTHER SPECIFIED DISORDERS OF BLADDER 12/18/2012 LORETTA BUI HASEEB CRISTINA 596.89 OTHER SPECIFIED DISORDERS OF BLADDER 12/18/2012 HASEEB BURGOS APRN 596.89 OTHER SPECIFIED DISORDERS OF BLADDER 12/18/2012 BALA SUTTON MD 596.89 OTHER SPECIFIED DISORDERS OF BLADDER 12/18/2012 HASEEB BURGOS APRN 596.89 OTHER SPECIFIED DISORDERS OF BLADDER 12/18/2012 BALA SUTTON MD 596.89 OTHER SPECIFIED DISORDERS OF BLADDER 12/18/2012 HASEEB BURGOS APRN 596.89 OTHER SPECIFIED DISORDERS OF BLADDER 12/18/2012 EVAN COSTELLO APRN 596.89 OTHER SPECIFIED DISORDERS OF BLADDER 08/19/2013 BALA SUTTON MD 272.4 OTHER AND UNSPECIFIED HYPERLIPIDEMIA 08/19/2013 BALA SUTTON MD 716.90 UNSPECIFIED ARTHROPATHY SITE UNSPECIFIED 08/19/2013 HASEEB BURGOS APRN 272.4 OTHER AND UNSPECIFIED HYPERLIPIDEMIA 08/19/2013 HASEEB BURGOS APRN 716.90 UNSPECIFIED ARTHROPATHY SITE UNSPECIFIED 08/19/2013 BALA SUTTON MD 272.4 OTHER AND UNSPECIFIED HYPERLIPIDEMIA 08/19/2013 BALA SUTTON MD 716.90 UNSPECIFIED ARTHROPATHY SITE UNSPECIFIED 08/19/2013 HASEEB BURGOS APRN 272.4 OTHER AND UNSPECIFIED HYPERLIPIDEMIA 08/19/2013 HASEEB BURGOS APRN 716.90 UNSPECIFIED ARTHROPATHY SITE UNSPECIFIED 08/19/2013 EVAN COSTELLO APRN 272.4 OTHER AND UNSPECIFIED HYPERLIPIDEMIA 08/19/2013 EVAN COSTELLO APRN 716.90 UNSPECIFIED ARTHROPATHY SITE UNSPECIFIED 09/27/2013 BALA SUTTON MD Ot 276.8 HYPOPOTASSEMIA 09/27/2013 LESLEY FUENTES, BALA Nam Ot 300.00 ANXIETY STATE NOS 09/27/2013 LESLEY FUENTES, BALA Nam Ot 305.01 ALCOHOL ABUSE-CONTINUOUS 09/27/2013 LESLEY FUENTES, BALA Nam Ot 311 DEPRESSIVE DISORDER NEC 09/27/2013 LESLEY FUENTES, BALA Nam Ot 518.81 ACUTE RESPIRATORY FAILURE 09/27/2013 LESLEY FUENTES, BALA Nam Ot 530.81 ESOPHAGEAL REFLUX 09/27/2013 LESLEY FUENTES, BALA Nam Ot 715.90 OSTEOARTHROS NOS-UNSPEC 09/27/2013 BALA SUTTON MD Ot 969.00 POISONING BY ANTIDEPRESSANT, UNSPECIFIED 09/27/2013 LESLEY FUENTES, BALA Nam Ot 969.72 POISONING BY AMPHETAMINES 09/27/2013 BALA SUTTON MD Ot E950.3 SUICIDE-PSYCHOTROPIC AGT 09/27/2013 BALA SUTTON MD Ot E950.4 SUICIDE-DRUG/MEDICIN NEC 10/02/2013 HASEEB BURGOS APRN 300.00 AN ANXIETY UNSPEC 10/02/2013 BALA SUTTON MD 300.00 AN ANXIETY UNSPEC 10/02/2013 LORETTA BUI HASEEB CRISTINA 300.00 AN ANXIETY UNSPEC 10/02/2013 EVAN COSTELLO APRN 300.00 AN ANXIETY UNSPEC 10/07/2014 LESLEY FUENTES, BALA Nam Ot 300.00 ANXIETY STATE NOS 10/07/2014 LESLEY FUENTES, BALA Nam Ot 305.00 ALCOHOL ABUSE-UNSPEC 10/07/2014 LESLEY FUENTES, BALA Nam Ot 305.40 SEDATIVE, HYPNOTIC OR ANXIOLYTIC ABUSE, 10/07/2014 LESLEY FUENTES, BALA Nam Ot 305.90 DRUG ABUSE NEC-UNSPEC 10/07/2014 BALA SUTTON MD Ot 311 DEPRESSIVE DISORDER NEC 10/07/2014 LESLEY FUENTES, BALA Nam Ot 530.81 ESOPHAGEAL REFLUX 10/07/2014 LESLEY FUENTES, BALA Nam Ot 780.54 HYPERSOMNIA, UNSPECIFIED 10/07/2014 LESLEY FUENTES, BALA Nam Ot 787.02 NAUSEA ALONE 10/07/2014 BALA SUTTON MD Ot 967.8 POIS-SEDATIVE/HYPNOT NEC 10/07/2014 BALA SUTTON MD Ot 969.3 POISON-ANTIPSYCHOTIC NEC 10/07/2014 BALA SUTTON MD Ot 972.1 POISONING-CARDIOTONICS 10/07/2014 LESLEY FUENTES, BALA Viv Ot E849.0 ACCIDENT IN HOME 10/07/2014 LESLEY FUENTES, BALA Nam Ot E950.2 SUICIDE-SEDAT/HYPNOTIC 10/07/2014 LESLEY FUENTES, BALA Nam Ot E950.3 SUICIDE-PSYCHOTROPIC AGT 10/07/2014 LESLEY FUENTES, BALA Nam Ot E950.4 SUICIDE-DRUG/MEDICIN NEC 10/07/2014 LESLEY FUENTES, BALA Viv Ot 300.00 10/07/2014 LESLEY FUENTES, BALA Viv Ot 305.00 10/07/2014 LESLEY FUENTES, BALA Viv Ot 305.40 10/07/2014 LELSEY FUENTES, BALA Viv Ot 305.90 10/07/2014 LESLEY FUENTES, BALA Nam Ot 311 10/07/2014 LESLEY FUENTES, BALA Viv Ot 530.81 10/07/2014 LESLEY FUENTES, BALA Viv Ot 780.54 10/07/2014 LESLEY FUENTES, BALA Nam Ot 787.02 10/07/2014 LESLEY FUENTES, BALA Nam Ot 967.8 10/07/2014 LESLEY FUENTES, BALA Nam Ot 969.3 10/07/2014 LESLEY FUENTES, BALA Nam Ot 972.1 10/07/2014 LESLEY FUENTES, BALA Viv Ot E849.0 10/07/2014 LESLEY FUENTES, BALA Nam Ot E950.2 10/07/2014 LESLEY FUENTES, BALA Nam Ot E950.3 10/07/2014 LESLEY FUENTES, BALA Nam Ot E950.4 05/08/2015 SHELBY TAO APRN Ot Z12.31 07/09/2015 SHAHRAM TRAVIS DO Ot M54.32 07/20/2015 Ot M54.2 07/22/2015 Ot M54.2 08/07/2015 Ot M54.2 CERVICALGIA 05/27/2016 ASTER SERRANO DO Ot K21.9 GASTRO-ESOPHAGEAL REFLUX DISEASE WITHOUT 05/27/2016 ASTER SERRANO DO Ot Z01.818 ENCOUNTER FOR OTHER PREPROCEDURAL EXAMIN 05/30/2016 ASTER SERRANO DO Ot K21.9 GASTRO-ESOPHAGEAL REFLUX DISEASE WITHOUT 05/30/2016 ASTER SERRANO DO Ot Z01.818 ENCOUNTER FOR OTHER PREPROCEDURAL EXAMIN 05/30/2016 ASTER SERRANO DO Ot K21.9 GASTRO-ESOPHAGEAL REFLUX DISEASE WITHOUT 05/30/2016 ASTER SERRANO DO Ot Z01.818 ENCOUNTER FOR OTHER PREPROCEDURAL EXAMIN 05/31/2016 SHELBY TAO ARTIFICIAL BREEDING TECHNICIAN Ot Z12.31 ENCNTR SCREEN MAMMOGRAM FOR MALIGNANT NE 05/31/2016 SHAHRAM TRAVIS DO Ot M54.32 SCIATICA, LEFT SIDE 05/31/2016 Ot M54.2 CERVICALGIA 05/31/2016 ASTER SERRANO DO Ot 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 05/31/2016 ASTER SERRANO DO Ot D12.2 BENIGN NEOPLASM OF ASCENDING COLON 05/31/2016 SERRANO ASTER COREY Ot D12.8 BENIGN NEOPLASM OF RECTUM 05/31/2016 ASTER SERRANO DO Ot K22.2 ESOPHAGEAL OBSTRUCTION 05/31/2016 ASTER SERRANO DO Ot K29.50 UNSPECIFIED CHRONIC GASTRITIS WITHOUT BL 05/31/2016 ASTER SERRANO DO Ot K44.9 DIAPHRAGMATIC HERNIA WITHOUT OBSTRUCTION 05/31/2016 ASTER SERRANO DO Ot K63.5 POLYP OF COLON 05/31/2016 ASTER SERRANO DO Ot Z12.11 ENCOUNTER FOR SCREENING FOR MALIGNANT NE 05/31/2016 ASTER SERRANO DO Ot K21.9 GASTRO-ESOPHAGEAL REFLUX DISEASE WITHOUT 05/31/2016 ASTER SERRANO DO Ot Z01.818 ENCOUNTER FOR OTHER PREPROCEDURAL EXAMIN 06/27/2016 SHELBY TAO ARTIFICIAL BREEDING TECHNICIAN Ot Z12.31 ENCNTR SCREEN MAMMOGRAM FOR MALIGNANT NE 06/27/2016 SHAHRAM TRAVIS DO Ot M54.32 SCIATICA, LEFT SIDE 06/27/2016 Ot M54.2 CERVICALGIA 06/27/2016 SHELBY TAO ARTIFICIAL BREEDING TECHNICIAN Ot Z12.31 ENCNTR SCREEN MAMMOGRAM FOR MALIGNANT NE 06/27/2016 SHAHRAM TRAVIS DO Ot M54.32 SCIATICA, LEFT SIDE 06/27/2016 Ot M54.2 CERVICALGIA 06/27/2016 MARTHA JEAN MD Ot K21.9 GASTRO-ESOPHAGEAL REFLUX DISEASE WITHOUT 06/27/2016 SHELBY TAO ARTIFICIAL BREEDING TECHNICIAN Ot Z12.31 ENCNTR SCREEN MAMMOGRAM FOR MALIGNANT NE 06/27/2016 SHAHRAM TRAVIS DO Ot M54.32 SCIATICA, LEFT SIDE 06/27/2016 Ot M54.2 CERVICALGIA 06/28/2016 TED FUENTES, MARTHA Bernabe Ot K21.9 GASTRO-ESOPHAGEAL REFLUX DISEASE WITHOUT 10/18/2016 ASTER ESRRANO DO Ot 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 10/18/2016 ASTER SERRANO DO Ot D12.2 BENIGN NEOPLASM OF ASCENDING COLON 10/18/2016 ASTER SERRANO DO Ot D12.8 BENIGN NEOPLASM OF RECTUM 10/18/2016 ASTER SERRANO DO Ot K22.2 ESOPHAGEAL OBSTRUCTION 10/18/2016 ASTER SERRANO DO Ot K29.50 UNSPECIFIED CHRONIC GASTRITIS WITHOUT BL 10/18/2016 ASTER SERRANO DO Ot K44.9 DIAPHRAGMATIC HERNIA WITHOUT OBSTRUCTION 10/18/2016 ASTER SERRANO DO Ot K63.5 POLYP OF COLON 10/18/2016 ASTER SERRANO DO Ot Z12.11 ENCOUNTER FOR SCREENING FOR MALIGNANT NE Procedures Code Description [place] [address] INDIV PSYTX 45/50 MIN 02/16/2012 97196 SLEEP STUDY 02/19 59536 INDIV PSYTX 20/30 MIN 02/27/2012 04198 INDIV PSYTX 45/50 MIN 03/28/2012 07718 PSYTX PT&/FAMILY 30 MINUTES 04/23/2012 48815 PSYCH PHARM MGMT 04/25/2012 14454 PSYTX PT&/FAMILY 45 MINUTES 06/06/2012 77460 PSYTX PT&/FAMILY 45 MINUTES 06/06/2012 42229 GLUCOSE FINGER STICK 07/18/2012 40272 PSYTX PT&/FAMILY 30 MINUTES 08/09/2012 43056 PSYTX PT&/FAMILY 45 MINUTES 08/09/2012 72588 PSYTX PT&/FAMILY 45 MINUTES 09/17/2012 32714 PSYTX PT&/FAMILY 45 MINUTES 10/01/2012 96.04 INSERT ENDOTRACHEAL TUBE 11/04/2012 96.71 CONTINUOUS INVASIVE MECHANICAL VENTILATI 11/04/2012 94.62 ALCOHOL DETOXIFICATION 11/05/2012 11712 ROUTINE VENIPUNCTURE 08/20/2013 0839338 GFR CALC (RESULT ONLY) 08/20/2013 72416 CMP 08/20/2013 69625 LIPID PANEL 08/20 96.04 INSERT ENDOTRACHEAL TUBE 09/26/2013 96.71 CONTINUOUS INVASIVE MECHANICAL VENTILATI 09/26/2013 Results Encounters ACCT No. Visit Date/Time Discharge Status Pt. Type Provider Facility Loc./Unit Complaint [id number] 05/20/2014 08:57:00 05/20/2014 23: 59:59 CLS Outpatient EVAN COSTELLO APRN [id number] 03/18/2014 09:45:00 03/18/2014 23: 59:59 CLS Outpatient EVAN COSTELLO APRN [id number] 12/06/2013 10:46:00 12/06/2013 23: 59:59 CLS Outpatient LORETTA BUI HASEEB EVANS [id number] 11/04/2013 15:18:00 11/04/2013 23: 59:59 CLS Outpatient BALA SUTTON MD [id number] 10/02/2013 14:49:00 10/02/2013 23: 59:59 CLS Outpatient LORETTA BUI HASEEB MAGUIREH [id number] 08/20/2013 07:55:00 08/20/2013 23: 59:59 CLS Outpatient BALA SUTTON MD [id number] 08/01/2013 14:23:00 08/01/2013 23: 59:59 CLS Outpatient LORETTA BUI HASEEB EVANS [id number] 03/01/2013 13:49:00 03/01/2013 23: 59:59 CLS Outpatient LORETTA BUI HASEEB MAGUIREH [id number] 12/31/2012 13:23:00 12/31/2012 23: 59:59 CLS Outpatient EVANGELINA WATERMAN DO [id number] 07/18/2012 10:18:00 07/18/2012 23: 59:59 CLS Outpatient [id number] 06/19/2012 11:45:00 06/19/2012 23: 59:59 CLS Outpatient EVANGELINA WATERMAN DO [id number] 06/04/2012 09:51:00 06/04/2012 23: 59:59 CLS Outpatient VIDYA GARCIA PSYD [id number] 04/23/2012 07:55:00 04/23/2012 23: 59:59 CLS Outpatient VIDYA GARCIA PSYD [id number] 04/13/2012 14:17:00 04/13/2012 23: 59:59 CLS Outpatient EVANGELINA WATERMAN DO [id number] 03/28/2012 09:42:00 03/28/2012 23: 59:59 CLS Outpatient [id number] 2012 11:50:00 2012 23: 59:59 CLS Outpatient VIDYA GARCIA PSYD [id number] 12/18/2012 08:47:00 Document Registration [id number] 11/02/2012 14:52:00 Document Registration [id number] 09/26/2012 16:50:00 Document Registration [id number] 09/19/2012 10:49:00 Document Registration [id number] 09/17/2012 07:54:00 Document Registration [id number] 08/07/2012 14:46:00 Document Registration [id number] 08/02/2012 11:50:00 Document Registration
[2016-10-26] MEDS ORDERED: ANTACID SUSP 30 ML UDC (MYLANTA) PO ONE (19:15)
[2016-10-26] MEDS ORDERED: LIDOCAINE 2% VISCOUS 15 ML UDC PO ONE (19:15)
--- NOTE | 2016-10-26 19:20 | Diagnostic Imaging Report ---
EXAM: CHEST PA/LAT (2 VIEW) INDICATION: Cough. Recently choked on a meat 45 minutes ago. COMPARISON: Chest radiograph 09/26/2013. FINDINGS: Normal heart size and pulmonary vascularity. No consolidation, pleural effusion or pneumothorax. No radiopaque foreign bodies overlying the airway or esophagus. No acute osseous findings. Eggshell calcifications underlying the left hemidiaphragm measuring up to 3.5 cm are stable since the 09/26/2013 exam. IMPRESSION: No acute cardiopulmonary findings. No radiopaque foreign bodies overlying the airway or esophagus. Dictated by: Dictated on workstation # [id number]
--- NOTE | 2016-10-26 19:32 | ED EENT ---
History of Present Illness General Chief Complaint: Oral/Throat Problems Stated Complaint: VOMITING W TRACES OF BLOOD Nursing Triage Note: pt reports she choked on a mint about 45 mins ago and has been coughing and vomiting since. pt feels like her throat is swollen or there is something stuck. History of Present Illness Time seen by provider: 18:50 Initial Comments Patient was eating a kyle mint when she started to choke on it. She immediately vomited. She is unsure if a kyle mint was projected out or not. Since this time she has been vomiting approximately every 10-15 minutes. She denies any dyspnea and sensation of foreign body in her throat. She denies any previous choking episodes. Timing/Duration: abrupt Severity: mild Prearrival Treatment: no prearrival treatment Associated Symptoms: cough, No nasal congestion/drainage, No sore throat, No voice change, other Allergies and Home Medications Allergies Coded Allergies: No Known Drug Allergies (Unverified , 11/11/11) Home Medications Amitriptyline HCl 100 Mg Tablet, 100 MG PO HS, (Reported) Buprenorphine HCl/Naloxone HCl 1 Each Film, 1 EACH SL DAILY, (Reported) Clonazepam 1 Mg Tablet, 1 MG PO BID, (Reported) Gabapentin 400 Mg Capsule, 400 MG PO TID, (Reported) Metoclopramide Hcl 10 Mg Tablet, 10 MG PO ACHS, (Reported) Pantoprazole Sodium 40 Mg Tablet.dr, 40 MG PO DAILY, #30 Ref 4 Prescribed by: DERIC ALONZO on 05/31/16 1029 Sucralfate 1 Gm Tablet, 1 GM PO QID, #120 Prescribed by: DERIC ALONZO on 05/31/16 1030 Venlafaxine HCl 150 Mg Cap.er.24h, 300 MG PO DAILY, (Reported) TAKE 2 (150MG) TABS Review of Systems Constitutional: no symptoms reported, see HPI Eyes: No Symptoms Reported, See HPI Throat: see HPI, denies neck stiffness, denies hoarse, denies aphonia, denies muffled, other (choking) Respiratory: no symptoms reported, see HPI, No dyspnea on exertion, No hemoptysis All Other Systems Reviewed Negative Unless Noted: Yes Past Oljoblo-Utchua-Cpttzf Hx Patient Social History Alcohol Use: Rarely Uses Recreational Drug Use: No Smoking Status: Former Smoker Type Used: Cigarettes Recent Foreign Travel: No Contact w/Someone Who Travel: No Recent Infectious Disease Expo: No Recent Hopitalizations: No Immunizations Up To Date Tetanus Booster (TDap): Unknown Date of Pneumonia Vaccine: Mar 19, 2012 Date of Influenza Vaccine: Mar 19, 2012 Seasonal Allergies Seasonal Allergies: No Surgeries HX Surgeries: Yes Surgeries: Section, Hysterectomy Respiratory Hx Respiratory Disorders: No Cardiovascular Hx Cardiac Disorders: No Neurological Hx Neurological Disorders: No Reproductive System Hx Reproductive Disorders: No Sexually Transmitted Disease: No HIV/AIDS: No Female Reproductive Disorders: Denies 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 Genitourinary Hx Genitourinary Disorders: Yes (URGE INCONTINENCE) Gastrointestinal Hx Gastrointestinal Disorders: Yes Gastrointestinal Disorders: Gastroesophageal Reflux, Chronic Constipation Musculoskeletal Hx Musculoskeletal Disorders: Yes Musculoskeletal Disorders: Arthritis Endocrine Hx Endocrine Disorders: No HEENT HX ENT Disorders: No Loss of Vision: Denies Hearing Impairment: Denies Cancer Hx Cancer: No Psychosocial Hx Psychiatric Problems: Yes (EXTENSIVE PSYCH ISSUES, history of overdose) Behavioral Health Disorders: Eating Disorder, Anxiety, Suicide Attempts, Depression Integumentary HX Skin/Integumentary Disorder: No Blood Transfusions Hx Blood Disorders: No Adverse Reaction to a Blood Tr: No Reviewed Nursing Assessment Reviewed/Agree w Nursing PMH: Yes Family Medical History Significant Family History: No Pertinent Family Hx Family Medial History: Physical Exam Vital Signs Vital Sign - Last 12Hours 10/26/16 18:40 Temp 97.9 Pulse 109 Resp 18 B/P (MAP) 134/77 Pulse Ox 97 General Appearance: WD/WN, no apparent distress Eyes: bilateral eye EOMI, bilateral eye PERRL, bilateral eye normal inspection Nose: normal inspection, No active bleeding, No discharge Mouth/Throat: normal mouth inspection, pharynx normal, No foreign body, No uvula swelling, No voice changes, other (positive gag reflex) Neck: non-tender, full range of motion, supple, normal inspection, No lymphadenopathy (R), No lymphadenopathy (L) Cardiovascular: normal peripheral pulses, regular rate, rhythm Respiratory: chest non-tender, lungs clear, normal breath sounds, no respiratory distress Gastrointestinal: normal bowel sounds, non tender, soft, No distended, No guarding Neurologic/Psychiatric: no motor/sensory deficits, alert, normal mood/affect, oriented x 3 Skin: normal color, warm/dry Progress/Results/Core Measures Results/Orders My Orders Orders - JOHN GARCIA Chest Pa/Lat (2 View) (10/26/16 19:00) Lidocaine 2% Viscous 15 Ml (Xylocaine Vi (10/26/16 19:15) Antacid Suspension (Mylanta Suspension (10/26/16 19:15) Medications Given in ED Current Medications Medications Dose Ordered Sig/Spike Route Start Time Stop Time Status Last Admin Dose Admin Al Hydrox/Mg Hydrox/Simethicone 30 ml ONCE ONCE PO 10/26/16 19:15 10/26/16 19:16 DC 10/26/16 19:20 30 ML Lidocaine HCl 15 ml ONCE ONCE PO 10/26/16 19:15 10/26/16 19:16 DC 10/26/16 19:20 15 ML Vital Signs/I&O Vital Sign - Last 12Hours 10/26/16 10/26/16 18:40 19:42 Temp 97.9 Pulse 109 0 Resp 18 0 B/P (MAP) 134/77 Pulse Ox 97 0 Blood Pressure Mean: 96 Progress Note : Time: 18:50 Progress Note Initial evaluation completed. Discussed assessment and treatment plan with Dr. Carlin, in agreement. 1929 GI cocktail administered. 1944 patient reports complete resolution of her symptoms. Discharge instructions reviewed, all questions answered patient had no further concerns. Diagnostic Imaging Diagonstic Imaging: Xray Plain Films/CT/US/NM/MRI: chest Comments NAME: G[facility] REC#: [id number] PT STATUS: REG ER : 1960 PHYSICIAN: JOHN GARCIA ADMIT DATE: 10/26/16/ER Draft Date of Exam:10/26/16 CHEST PA/LAT (2 VIEW) EXAM: CHEST PA/LAT (2 VIEW) INDICATION: Cough. Recently choked on a meat 45 minutes ago. COMPARISON: Chest radiograph 09/26/2013. FINDINGS: Normal heart size and pulmonary vascularity. No consolidation, pleural effusion or pneumothorax. No radiopaque foreign bodies overlying the airway or esophagus. No acute osseous findings. Eggshell calcifications underlying the left hemidiaphragm measuring up to 3.5 cm are stable since the 09/26/2013 exam. IMPRESSION: No acute cardiopulmonary findings. No radiopaque foreign bodies overlying the airway or esophagus. Dictated on workstation # [id number] Dict: 10/26/161911 Trans: 10/26/161918 [facility] [id number] Interpreted by: CHUCK OCHOA MD Electronically signed by: Reviewed: Reviewed by Me Departure Impression Impression: Primary Impression: Choked on food Disposition: 01 HOME, SELF-CARE Condition: Improved Departure-Patient Inst. Decision time for Depature: 19:25 Referrals: BALA SUTTON MD (PCP/Family) Primary Care Physician Patient Instructions: Choking Add. Discharge Instructions: Clear liquids for 2 hours then soft, bland food as tolerated. Return to emergency department if another choking episode occur, difficulty breathing, difficulty swallowing, fever over 100, or new problems. All discharge instructions reviewed with patient and/or family. Voiced understanding. JOHN GARCIA Oct 26, 2016 19:32
[2016-10-26 19:42] VITALS: BP 0/0
== END 2016-10-26 19:42 | disposition home or self-care (01) ==
LOC: EDUNIT# 18:06 → ER 18:08
DX: T17.928A Food in respiratory tract, part unspecified causing other injury, initial encounter (principal); F32.9 Major depressive disorder, single episode, unspecified; F41.9 Anxiety disorder, unspecified; F50.9 Eating disorder, unspecified; M19.90 Unspecified osteoarthritis, unspecified site; K21.9 Gastro-esophageal reflux disease without esophagitis; K59.09 Other constipation; Z90.710 Acquired absence of both cervix and uterus; Z87.891 Personal history of nicotine dependence; Z91.5 Personal history of self-harm
CPT/HCPCS: 71020; 99283

== ENCOUNTER 2017-01-24 06:15 | Day surgery (SDC) | payer MEDICARE, MEDICAID ==
[2017-01-24] VITALS (11 sets, daily range): BP systolic 94–142; BP diastolic 51–75
[~2017-01-24] VITALS: Ht 162.6 cm; Wt 81.6 kg
[~2017-01-24 06:15] MED LIST changes: +GUAN3TAB PO; +OMEP40CA36 PO; +PROP10TA8 PO
--- OUTSIDE RECORDS SUMMARY | 2017-01-24 06:19 | XMS REPORT | Clinical Summary ---
Author Author [facility] Organization [facility] Address Unknown Phone Unavailable Care Team Providers Care Supervisor Quilting Name Role Phone PCP Unavailable Source Comments Some departments are not documenting in the electronic medical record. If you do not see the information that you expected, contact Release of Information in the Health Information Management department at [phone] for further assistance in locating additional records.[facility] Allergies No Known Allergies Current Medications Prescription Sig. [...] Bipolar affective disorder, depressed, severe (HCC) 04/07/2010 Opioid abuse, in remission 04/07/2010 History of alcohol abuse 04/07/2010 Depression 02/10/2010 Resolved Problems Problem Noted Date Resolved Date Suicidal ideation 04/07/2010 04/27/2010 Family History Medical History Relation Name Comments Schizophrenia Mother Depression Sister Other Sister substance abuse Relation Name Status Comments Mother Sister Social History Tobacco Use Types Packs/Day Years Used Date Current Every Day Smoker Cigarettes 1.5 35 Smokeless Tobacco: Never Used Alcohol Use Drinks/Week oz/Week Comments Yes 6 Standard 3.0 history of alcohol dependence in remission for 10 drinks or years until January 2010 equivalent Sex Assigned at Date Recorded Not on file Last Filed Vital Signs Vital Sign Reading Time Taken Blood Pressure 112/72 08/06/2012 7:00 AM CDT Pulse 76 08/06/2012 7:00 AM CDT Temperature 36.8 C (98.2 F) 08/06/2012 7:00 AM CDT Respiratory Rate - - Oxygen Saturation 98% 08/02/2012 6:35 PM CDT Inhaled Oxygen - - Concentration Weight 69 kg (152 lb 1.9 oz) 08/02/2012 11:00 PM CDT Height 164.5 cm (5' 4.76") 08/02/2012 11:00 PM CDT Body Mass Index 25.5 08/02/2012 11:00 PM CDT Plan of Treatment Health Maintenance Due Date Last Done Comments HEPATITIS C SCREENING 1960 PHYSICAL (COMPREHENSIVE) 02/16/1968 EXAM PERTUSSIS VACCINE 02/16/1972 TETANUS VACCINE 1978 CERVICAL CANCER SCREENING 1991 BREAST CANCER SCREENING 2001 COLORECTAL CANCER 2011 SCREENING INFLUENZA VACCINE 01/15/2017 Results Not on filefrom Last 3 Months
--- OUTSIDE RECORDS SUMMARY | 2017-01-24 06:19 | XMS REPORT ---
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 0727098 Problem Reflux esophagitis K21.0 Active 538442579 Problem Neuropathy G62.9 Active 044678403 Problem Other chronic pain G89.29 Active 24482457 Problem Social phobia, generalized F40.11 Active 13514655 Problem Anxiety disorder, unspecified F41.9 Active 447365746 Problem Bulimia nervosa F50.2 Active 47218030 Problem ADHD (attention deficit hyperactivity disorder), inattentive type F90.0 Active 32907306 Problem Chronic post-traumatic stress disorder (PTSD) F43.12 Active 081740128 ALLERGIES No Information SOCIAL HISTORY Never Assessed PLAN OF CARE Activity Details Follow Up 1 Week Reason: VITAL SIGNS MEDICATIONS Unknown Medications RESULTS No Results PROCEDURES Procedure Date Ordered Result Body Site [facility] VISIT MENTAL HEALTH ESTAB PT June 28, 2016 Psychotherapy, patient &/family, 45 minutes, established patient June 28, 2016 IMMUNIZATIONS No Known Immunizations MEDICAL (GENERAL) HISTORY Type Description Date Medical History depression Medical History anxiety Medical History bipolar Surgical History 1978 Surgical History 1980 Surgical History hysterectomy 2004 Hospitalization History [place]-depression and addiction to prescription pain medication 08/[address] [facility]- overdose x 3 2013
--- OUTSIDE RECORDS SUMMARY | 2017-01-24 06:20 | XMS REPORT ---
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 Active 4848006 Problem Reflux esophagitis K21.0 Active 943810787 Problem Social phobia, generalized F40.11 Active 36326853 Problem ADHD (attention deficit hyperactivity disorder), inattentive type F90.0 Active 95420049 Problem Bulimia nervosa F50.2 Active 82474788 Problem Alcohol dependence, uncomplicated F10.20 Active 84798194 Problem Chronic post-traumatic stress disorder (PTSD) F43.12 Active 291826350 Problem Anxiety disorder, unspecified F41.9 Active 447367720 ALLERGIES No Information SOCIAL HISTORY Never Assessed PLAN OF CARE Activity Details Follow Up 1 Week Reason: VITAL SIGNS MEDICATIONS Unknown Medications RESULTS No Results PROCEDURES Procedure Date Ordered Result Body Site [facility] VISIT MENTAL HEALTH ESTAB PT Jun 07, 2016 Psychotherapy, patient &/family, 30 minutes, established patient Jun 07, 2016 IMMUNIZATIONS No Known Immunizations MEDICAL (GENERAL) HISTORY Type Description Date Medical History depression Medical History anxiety Medical History bipolar Surgical History 1978 Surgical History 1980 Surgical History hysterectomy 2004 Hospitalization History [place]-depression and addiction to prescription pain medication 08/2014 Hospitalization History [facility]- overdose x 3 2013
--- OUTSIDE RECORDS SUMMARY | 2017-01-24 06:20 | XMS REPORT ---
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 Active 6231102 Problem Reflux esophagitis K21.0 Active 876061938 Problem Neuropathy G62.9 Active 937130599 Problem Other chronic pain G89.29 Active 19475506 Problem Social phobia, generalized F40.11 Active 78917925 Problem Anxiety disorder, unspecified F41.9 Active 995303815 Problem Bulimia nervosa F50.2 Active 33416982 Problem ADHD (attention deficit hyperactivity disorder), inattentive type F90.0 Active 16626822 Problem Chronic post-traumatic stress disorder (PTSD) F43.12 Active 846865259 ALLERGIES No Information SOCIAL HISTORY Never Assessed PLAN OF CARE Activity Details Follow Up 2 - 3 Days Reason: VITAL SIGNS MEDICATIONS Unknown Medications RESULTS No Results PROCEDURES Procedure Date Ordered Result Body Site Alcohol and/or drug services June 27, 2016 IMMUNIZATIONS No Known Immunizations MEDICAL (GENERAL) HISTORY Type Description Date Medical History depression Medical History anxiety Medical History bipolar Surgical History 1978 Surgical History 1980 Surgical History hysterectomy 2004 Hospitalization History [place]-depression and addiction to prescription pain medication 08/2014 Hospitalization History [facility]- overdose x 2013
--- OUTSIDE RECORDS SUMMARY | 2017-01-24 06:20 | XMS REPORT ---
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 4117939 Problem Reflux esophagitis K21.0 Active 708753496 Problem Social phobia, generalized F40.11 Active 08740746 Problem ADHD (attention deficit hyperactivity disorder), inattentive type F90.0 Active 37059233 Problem Bulimia nervosa F50.2 Active 68186346 Problem Alcohol dependence, uncomplicated F10.20 Active 18893496 Problem Chronic post-traumatic stress disorder (PTSD) F43.12 Active 084804407 Problem Anxiety disorder, unspecified F41.9 Active 125064433 ALLERGIES No Information SOCIAL HISTORY Never Assessed PLAN OF CARE Activity Details Follow Up 1 Week Reason: VITAL SIGNS MEDICATIONS Unknown Medications RESULTS No Results PROCEDURES Procedure Date Ordered Result Body Site [facility] VISIT MENTAL HEALTH ESTAB PT June 20, 2016 Psychotherapy, patient &/family, 30 minutes, established patient June 20, 2016 IMMUNIZATIONS No Known Immunizations MEDICAL (GENERAL) HISTORY Type Description Date Medical History depression Medical History anxiety Medical History bipolar Surgical History 1978 Surgical History 1980 Surgical History hysterectomy 2004 Hospitalization History [place]-depression and addiction to prescription pain medication 08/2014 Hospitalization History [facility]- overdose x 3 2013
--- OUTSIDE RECORDS SUMMARY | 2017-01-24 06:20 | XMS REPORT ---
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 Active 0257662 Problem Reflux esophagitis K21.0 Active 082257647 Problem Social phobia, generalized F40.11 Active 66574343 Problem ADHD (attention deficit hyperactivity disorder), inattentive type F90.0 Active 46789359 Problem Bulimia nervosa F50.2 Active 92251126 Problem Alcohol dependence, uncomplicated F10.20 Active 95017825 Problem Chronic post-traumatic stress disorder (PTSD) F43.12 Active 855176082 Problem Anxiety disorder, unspecified F41.9 Active 006039402 ALLERGIES No Information SOCIAL HISTORY Never Assessed PLAN OF CARE VITAL SIGNS MEDICATIONS Unknown Medications RESULTS No Results PROCEDURES Procedure Date Ordered Result Body Site Alcohol and/or drug services Jun 09, 2016 IMMUNIZATIONS No Known Immunizations MEDICAL (GENERAL) HISTORY Type Description Date Medical History depression Medical History anxiety Medical History bipolar Surgical History 1978 Surgical History 1980 Surgical History hysterectomy 2004 Hospitalization History [place]-depression and addiction to prescription pain medication 08/2014 Hospitalization History [facility]- overdose x 2013
--- OUTSIDE RECORDS SUMMARY | 2017-01-24 06:20 | XMS REPORT ---
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 4829768 Problem Reflux esophagitis K21.0 Active 021998968 Problem Social phobia, generalized F40.11 Active 10381693 Problem ADHD (attention deficit hyperactivity disorder), inattentive type F90.0 Active 64486347 Problem Bulimia nervosa F50.2 Active 82392088 Problem Alcohol dependence, uncomplicated F10.20 Active 67098705 Problem Chronic post-traumatic stress disorder (PTSD) F43.12 Active 675828786 Problem Anxiety disorder, unspecified F41.9 Active 508396937 ALLERGIES No Information SOCIAL HISTORY Never Assessed PLAN OF CARE Activity Details Follow Up 1 Week Reason: VITAL SIGNS MEDICATIONS Unknown Medications RESULTS No Results PROCEDURES Procedure Date Ordered Result Body Site Alcohol and/or drug services June 20, 2016 IMMUNIZATIONS No Known Immunizations MEDICAL (GENERAL) HISTORY Type Description Date Medical History depression Medical History anxiety Medical History bipolar Surgical History 1978 Surgical History 1980 Surgical History hysterectomy 2004 Hospitalization History [place]-depression and addiction to prescription pain medication 08/2014 Hospitalization History [facility]- overdose x 2013
--- OUTSIDE RECORDS SUMMARY | 2017-01-24 06:21 | XMS REPORT ---
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 Active 2386266 Problem Reflux esophagitis K21.0 Active 404503606 Problem Social phobia, generalized F40.11 Active 18196118 Problem ADHD (attention deficit hyperactivity disorder), inattentive type F90.0 Active 64497016 Problem Bulimia nervosa F50.2 Active 03627892 Problem Alcohol dependence, uncomplicated F10.20 Active 48125154 Problem Chronic post-traumatic stress disorder (PTSD) F43.12 Active 944339264 Problem Anxiety disorder, unspecified F41.9 Active 829040135 ALLERGIES No Known Allergies SOCIAL HISTORY Never Assessed PLAN OF CARE Activity Details Follow Up 4-6 weeks Reason: VITAL SIGNS Height 64 in 2016-06-02 Weight 179.1 lbs 2016-06-02 Heart Rate 88 bpm 2016-06-02 Respiratory Rate 20 2016-06-02 BMI 30.74 kg/m2 2016-06-02 Blood pressure systolic 100 mmHg 2016-06-02 Blood pressure diastolic 63 mmHg 2016-06-02 MEDICATIONS Medication Instructions Dosage Frequency Start Date End Date Duration Status Amitriptyline HCl 100 MG Orally HS prn sleep 1 or 2 tablets 30 days Active Lamotrigine 100 MG Orally Once a day Beginning June 30, 2016, take one tab 24h 15 Dec, 2015 30 day(s) Active Omeprazole 40 MG Orally Once a day,ac 1 30 Active Propranolol HCl 10 MG Orally Twice a day 1 tablet 12h 30 days Active BuPROPion HCl (SR) 150 MG Orally Once a day 1 tablet 24h 16 May, 2016 30 day(s) Active Effexor XR 150 MG Orally BID TAKE ONE CAPSULE BY MOUTH ONCE DAILY 12h 30 days Active Suboxone 4-1 MG Sublingual Once a day 1 application under the tongue and allow to dissolve 24h Active Lamotrigine 25 MG Orally daily 1 tablet every day X 2 weeks then 2 tabs daily X 2 weeks. 24h 15 Dec, 2015 28 days Active Protonix 40 MG Orally Once a day 1 tablet 24h Active Gabapentin 300 MG Orally Three times a day 1 capsule 8h 24 Dec, 2014 Active Aleve 220 MG Orally every 12 hrs 1 tablet as needed 12h Active Carafate 1 GM Orally 4 times a day 1 tablet on an empty stomach 6h Active Reglan 10 mg Orally 4 times a day 1 tablet 6h Oct, Active Klonopin 1 MG Orally Twice a day 1 tablet 12h Active RESULTS No Results PROCEDURES Procedure Date Ordered Result Body Site [facility] VISIT ESTABLISHED PATIENT Jun 02, 2016 IMMUNIZATIONS No Known Immunizations MEDICAL (GENERAL) HISTORY Type Description Date Medical History depression Medical History anxiety Medical History bipolar Surgical History 1978 Surgical History 1980 Surgical History hysterectomy 2004 Hospitalization History [place]-depression and addiction to prescription pain medication 08/2014 Hospitalization History [facility]- overdose x 3 2013
--- OUTSIDE RECORDS SUMMARY | 2017-01-24 06:21 | XMS REPORT ---
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 Active 8999198 Problem Reflux esophagitis K21.0 Active 518227386 Problem Social phobia, generalized F40.11 Active 36684495 Problem ADHD (attention deficit hyperactivity disorder), inattentive type F90.0 Active 47952127 Problem Bulimia nervosa F50.2 Active 11554851 Problem Alcohol dependence, uncomplicated F10.20 Active 55547724 Problem Chronic post-traumatic stress disorder (PTSD) F43.12 Active 895071907 Problem Anxiety disorder, unspecified F41.9 Active 703508348 ALLERGIES No Information SOCIAL HISTORY Never Assessed PLAN OF CARE VITAL SIGNS MEDICATIONS Unknown Medications RESULTS No Results PROCEDURES Procedure Date Ordered Result Body Site Alcohol and/or drug services June 15, 2016 IMMUNIZATIONS No Known Immunizations MEDICAL (GENERAL) HISTORY Type Description Date Medical History depression Medical History anxiety Medical History bipolar Surgical History 1978 Surgical History 1980 Surgical History hysterectomy 2004 Hospitalization History [place]-depression and addiction to prescription pain medication 08/2014 [address]ization [address] [facility]- overdose x 2013
--- OUTSIDE RECORDS SUMMARY | 2017-01-24 06:21 | XMS REPORT ---
Author Author BALA SUTTON 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 Active 2899758 Problem Reflux esophagitis K21.0 Active 882056942 Problem Social phobia, generalized F40.11 Active 74674049 Problem ADHD (attention deficit hyperactivity disorder), inattentive type F90.0 Active 73429318 Problem Bulimia nervosa F50.2 Active 88750488 Problem Alcohol dependence, uncomplicated F10.20 Active 99450297 Problem Chronic post-traumatic stress disorder (PTSD) F43.12 Active 915776419 Problem Anxiety disorder, unspecified F41.9 Active 337826969 ALLERGIES No Known Allergies SOCIAL HISTORY Never Assessed PLAN OF CARE Activity Details Follow Up 3 Months Reason: VITAL SIGNS Height 64 in 2016-05-20 Weight 177.7 lbs 2016-05-20 Temperature 97.9 degrees Fahrenheit 2016-05-20 Heart Rate 78 bpm 2016-05-20 Respiratory Rate 20 2016-05-20 BMI 30.50 kg/m2 2016-05-20 Blood pressure systolic 144 mmHg 2016-05-20 Blood pressure diastolic 92 mmHg 2016-05-20 MEDICATIONS Medication Instructions Dosage Frequency Start Date End Date Duration Status Gabapentin 300 MG Orally Three times a day 1 capsule 8h 24 Dec, 2014 Active Suboxone 4-1 MG Sublingual Once a day 1 application under the tongue and allow to dissolve 24h Active Reglan 10 mg Orally 4 times a day 1 tablet 6h Oct, Active Amitriptyline HCl 100 MG Orally Once a day at hs 2 tablets 30 days Active Omeprazole 40 MG Orally Once a day,ac 1 30 Active Effexor XR 150 MG Orally Once a day TAKE ONE CAPSULE BY MOUTH ONCE DAILY 24h 30 days Active Klonopin 1 MG Orally Twice a day 1 tablet 12h Active Aleve 220 MG Orally every 12 hrs 1 tablet as needed 12h Active Propranolol HCl 10 MG Orally Twice a day 1 tablet 12h Active RESULTS No Results PROCEDURES Procedure Date Ordered Result Body Site [facility] VISIT ESTABLISHED PATIENT May 20, 2016 IMMUNIZATIONS No Known Immunizations MEDICAL (GENERAL) HISTORY Type Description Date Medical History depression Medical History anxiety Medical History bipolar Surgical History 1978 Surgical History 1980 Surgical History hysterectomy 2004 Hospitalization History [place]-depression and addiction to prescription pain medication 08/2014 Hospitalization History [facility]- overdose x 2013
--- OUTSIDE RECORDS SUMMARY | 2017-01-24 06:21 | XMS REPORT ---
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 Active 9785116 Problem Reflux esophagitis K21.0 Active 696174670 Problem Neuropathy G62.9 Active 123085319 Problem Other chronic pain G89.29 Active 27791452 Problem Social phobia, generalized F40.11 Active 24198156 Problem Anxiety disorder, unspecified F41.9 Active 948086627 Problem Bulimia nervosa F50.2 Active 27781312 Problem ADHD (attention deficit hyperactivity disorder), inattentive type F90.0 Active 86717804 Problem Chronic post-traumatic stress disorder (PTSD) F43.12 Active 596829486 ALLERGIES No Information SOCIAL HISTORY Never Assessed PLAN OF CARE Activity Details Follow Up 2 - 3 Days Reason: VITAL SIGNS MEDICATIONS Unknown Medications RESULTS No Results PROCEDURES Procedure Date Ordered Result Body Site Alcohol and/or drug services July 01, 2016 IMMUNIZATIONS No Known Immunizations MEDICAL (GENERAL) HISTORY Type Description Date Medical History depression Medical History anxiety Medical History bipolar Surgical History 1978 Surgical History 1980 Surgical History hysterectomy 2004 Hospitalization History [place]-depression and addiction to prescription pain medication 08/2014 Hospitalization History [facility]- overdose x 2013
--- OUTSIDE RECORDS SUMMARY | 2017-01-24 06:21 | XMS REPORT ---
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 Active 3550193 Problem Reflux esophagitis K21.0 Active 540003432 Problem Social phobia, generalized F40.11 Active 89734623 Problem ADHD (attention deficit hyperactivity disorder), inattentive type F90.0 Active 79146139 Problem Bulimia nervosa F50.2 Active 39014466 Problem Alcohol dependence, uncomplicated F10.20 Active 65466046 Problem Chronic post-traumatic stress disorder (PTSD) F43.12 Active 590680203 Problem Anxiety disorder, unspecified F41.9 Active 253338649 ALLERGIES No Information SOCIAL HISTORY Never Assessed PLAN OF CARE Activity Details Follow Up 6 days Reason: VITAL SIGNS MEDICATIONS Unknown Medications RESULTS No Results PROCEDURES Procedure Date Ordered Result Body Site Alcohol and/or drug services June 15, 2016 IMMUNIZATIONS No Known Immunizations MEDICAL (GENERAL) HISTORY Type Description Date Medical History depression Medical History anxiety Medical History bipolar Surgical History 1978 Surgical History 1980 Surgical History hysterectomy 2004 Hospitalization History [place]-depression and addiction to prescription pain medication 08/2014 Hospitalization History [facility]- overdose x 2013
--- OUTSIDE RECORDS SUMMARY | 2017-01-24 06:24 | XMS REPORT | Continuity of Care Document ---
Author Author [facility] Address Unknown Phone Unavailable Allergies Active Description Code Type Severity Reaction Onset Reported/Identified Relationship to Patient Clinical Status Yes No Known Drug Allergies [id number] Drug Allergy Unknown N/ A 11/11/2011 Medications [...] 787.02 NAUSEA ALONE 08/11/2009 EVANGELINA WATERMAN DO F 296.7 BIPOLAR I DISORDER MOST RECENT EPISODE [...] BURGOS APRN 787.02 NAUSEA ALONE 08/11/2009 TRANG GAS METER MECHANIC, EVAN 296.7 BIPOLAR I DISORDER MOST RECENT EPISODE (OR CURRENT) UNSPECIFIED 08/11/2009 TRANG BUI, EVAN 787.02 NAUSEA ALONE 09/07/2009 716.90 Arthritis/ Arthropathy, Unspecified 09/07/2009 EVANGELINA WATERMAN DO 716.90 Arthritis/ Arthropathy, Unspecified 09/07/2009 VIDAY GARCIA PSYD 716.90 Arthritis/ Arthropathy, Unspecified 09/07/2009 [...] ANETA L 307.47 Si Dyssomnia Nos 11/12/2009 LORETTA BUI HASEEB CRISTINA 296.40 MO BIPOLAR MANIC UNSPECIFIED [...] 296.40 MO BIPOLAR MANIC UNSPECIFIED 11/12/2009 LORETTA LOVENHASEEB 300.01 AN PANIC DIS W/O AGORA 11/12/2009 LORETTA HAOHASEEB 300.23 An Social Phobia 11/12/2009 LORETTA HAOHASEEB 307.47 Si Dyssomnia Nos 11/12/2009 TRANG GAS METER MECHANIC, EVAN 296.40 MO BIPOLAR MANIC UNSPECIFIED 11/12/2009 TRANG GAS METER MECHANIC, EVAN 300.01 AN PANIC DIS W/O AGORA 11/12/2009 TRANG GAS METER MECHANIC, EVAN 300.23 An Social Phobia 11/12/2009 TRANG GAS METER MECHANIC, EVAN 307.47 Si Dyssomnia Nos 11/26/2009 V58.69 [...] DEPRESSIVE RECURRENT UNSPECIFIED 01/14/2010 LORETTA BUI, HASEEB MAGUIREH 296.30 MO DEPRESSIVE RECURRENT UNSPECIFIED 01/14/2010 VIDYA GARCIA PSYD L 296.30 MO DEPRESSIVE RECURRENT UNSPECIFIED 01/14/2010 LORETTA BUI, HASEEB CRISTINA 296.30 MO DEPRESSIVE RECURRENT UNSPECIFIED 01/14/2010 BALA SUTTON MD 296.30 MO DEPRESSIVE RECURRENT UNSPECIFIED 01/14/2010 LORETTA BUI, HASEEB EVANS 296.30 MO DEPRESSIVE RECURRENT UNSPECIFIED 01/14/2010 BALA [...] GARCIA PSYD L NODX No Diagnosis 06/01/2010 GUEVARA COREY [...] NODX No Diagnosis 06/01/2010 VIDYA GARCIA PSYD NODX No Diagnosis 06/01/2010 LORETTA BUI, HASEEB [...] GARCIA PSYD 530.11 REFLUX ESOPHAGITIS 07/12/2010 BURGOS GAS METER MECHANIC, HASEEB MAGUIREH 530.11 REFLUX ESOPHAGITIS 07/12/2010 BALA SUTTON MD 530.11 REFLUX ESOPHAGITIS 07/12/2010 BURGOS APRN, HASEEB CRSITINA 530.11 REFLUX ESOPHAGITIS 07/12/2010 BALA SUTTON MD [...] 296.51 MO BIPOLAR I DEPRESSED MILD 10/22/2010 EVAN COSTELLO APRN 296.51 MO BIPOLAR I DEPRESSED MILD 11/11/2011 [...] GARCIA PSYD L 307.51 Bulimia Nervosa 12/01/2011 VIDYA GARCIA PSYD [...] I MANIC MODERATE 12/01/2011 EVANGELINA WATERMAN DO F 303.90 Other And Unspecified Alcohol Dependence Unspecified [...] MO BIPOLAR I MIXED UNSPECIFIED 12/16/2011 BURGOS GAS METER MECHANIC, HASEEB EVANS 296.60 MO BIPOLAR I MIXED UNSPECIFIED 12/16/2011 VIDYA GARCIA PSYD L 296.60 MO BIPOLAR I MIXED UNSPECIFIED 12/16/2011 LORETTA BUI, HASEEB EVANS 296.60 MO BIPOLAR I MIXED UNSPECIFIED 12/16/2011 BALA SUTTON MD 296.60 MO BIPOLAR I MIXED UNSPECIFIED 12/16/2011 BURGOS GAS METER MECHANIC, HASEEB EVANS 296.60 MO BIPOLAR I MIXED UNSPECIFIED 12/16/2011 BALA SUTTON MD 296.60 MO BIPOLAR I MIXED UNSPECIFIED 12/16/2011 BURGOS GAS METER MECHANIC, HASEEB EVANS 296.60 MO BIPOLAR I MIXED UNSPECIFIED 12/16/2011 TRANG GAS METER MECHANIC, EVAN 296.60 MO BIPOLAR I MIXED UNSPECIFIED [...] HYPERTONICITY OF BLADDER 01/31/2012 VIDYA GARCIA PSYD ANN L V04.81 FLU DX (3 YRS AND [...] HYPERTONICITY OF BLADDER 01/31/2012 LORETTA BUI HASEEB MAGUIREH V04.81 FLU DX (3 YRS AND ABOVE, [...] AND ABOVE, IM) 01/31/2012 LORETTA BUI HASEEB MAGUIREH 596.51 HYPERTONICITY OF BLADDER 01/31/2012 BURGOS GAS METER MECHANICHASEEB V04.81 FLU DX (3 YRS AND ABOVE, IM) 01/31/2012 BALA SUTTON MD 596.51 HYPERTONICITY OF BLADDER 01/31/2012 BALA SUTTON MD V04.81 FLU DX (3 YRS AND ABOVE, IM) 01/31/2012 LORETTA BUI HASEEB CRISTINA 596.51 HYPERTONICITY OF BLADDER 01/31/2012 LORETTA BUI HASEEB CRISTINA V04.81 FLU DX (3 YRS AND ABOVE, IM) 01/31/2012 EVAN COSTELLO APRN 596.51 HYPERTONICITY OF BLADDER 01/31/2012 EVAN [...] 09/13/2012 JEAN PIERRE BRUSH MD Ot 968.0 POIS-GANG MINER MUSCLE DEPRESS 09/13/2012 JEAN PIERRE BRUSH MD Ot E849.0 ACCIDENT IN HOME 09/13/2012 JEAN PIERRE BRUSH MD Ot E855.1 ACC POISN-GANG MINER DEPRES NEC 09/13/2012 JEAN PIERRE BRUSH MD Ot V62.84 SUICIDAL IDEATION 09/28/2012 RACHEL ONTIVEROS MD Ot 298.9 PSYCHOSIS NOS 09/28/2012 RACHEL ONTIVEROS MD Ot 305.00 ALCOHOL ABUSE-UNSPEC 09/28/2012 RACHEL ONTIVEROS MD Ot 305.1 TOBACCO USE DISORDER 09/28/2012 RACHEL ONTIVEROS MD Ot 530.81 ESOPHAGEAL REFLUX 09/28/2012 RACHEL ONTIVEROS MD Ot 716.90 ARTHROPATHY NOS-UNSPEC 09/28/2012 RACHEL ONTIVEROS MD Ot 968.0 POIS-GANG MINER MUSCLE DEPRESS 09/28/2012 RACHEL ONTIVEROS MD Ot [...] INCONTINENCE 11/08/2012 SHERRI CONRAD DO Ot 968.0 POIS-GANG MINER MUSCLE DEPRESS 11/08/2012 SHERRI CONRAD DO Ot [...] Nam Ot 311 DEPRESSIVE DISORDER NEC 09/27/2013 BALA SUTTON MD Ot 518.81 ACUTE RESPIRATORY FAILURE 09/27/2013 BALA SUTTON MD Ot 530.81 ESOPHAGEAL REFLUX 09/27/2013 BALA USTTON MD Ot 715.90 OSTEOARTHROS NOS-UNSPEC 09/27/2013 BALA SUTTON MD Ot 969.00 POISONING BY ANTIDEPRESSANT, UNSPECIFIED 09/27/2013 BALA SUTTON MD Ot 969.72 POISONING BY AMPHETAMINES 09/27/2013 BALA SUTTON MD Ot E950.3 SUICIDE-PSYCHOTROPIC AGT 09/27/2013 BALA SUTTON MD Ot E950.4 SUICIDE-DRUG/MEDICIN NEC 10/02/2013 HASEEB BURGOS APRN 300.00 AN ANXIETY UNSPEC 10/02/2013 BALA SUTTON MD 300.00 AN ANXIETY UNSPEC 10/02/2013 LORETTA BUI HASEEB CRISTINA 300.00 AN ANXIETY UNSPEC 10/02/2013 EVAN COSTELLO APRN 300.00 AN ANXIETY UNSPEC 10/07/2014 BALA SUTTON MD Ot 300.00 ANXIETY STATE NOS 10/07/2014 LESLEY FUENTES, BALA Nam Ot 305.00 ALCOHOL ABUSE-UNSPEC 10/07/2014 LESLEY FUENTES, BALA Nam Ot 305.40 SEDATIVE, HYPNOTIC OR ANXIOLYTIC ABUSE, 10/07/2014 BALA SUTTON MD Ot 305.90 DRUG ABUSE NEC-UNSPEC 10/07/2014 BALA SUTTON MD Ot 311 DEPRESSIVE DISORDER NEC 10/07/2014 LESLEY FUENTES, BALA Nam Ot 530.81 ESOPHAGEAL REFLUX 10/07/2014 BALA SUTTON MD Ot 780.54 HYPERSOMNIA, UNSPECIFIED 10/07/2014 LESLEY FUENTES, [...] LESLEY FUENTES, BALA Viv Ot 305.40 10/07/2014 LESLEY FUENTES, BALA Viv Ot 305.90 10/07/2014 LESLEY FUENTES, BALA Viv Ot 311 10/07/2014 LESLEY FUENTES, BALA Viv Ot 530.81 10/07/2014 LESLEY FUENTES, BALA Viv Ot 780.54 10/07/2014 LESLEY FUENTES, BALA Nam Ot 787.02 10/07/2014 LESLEY FUENTES, BALA Viv Ot 967.8 10/07/2014 LESLEY FUENTES, BALA Viv Ot 969.3 10/07/2014 LESLEY FUENTES, BALA Nam Ot 972.1 10/07/2014 LESLEY FUENTES, BALA Nam Ot E849.0 10/07/2014 LESLEY FUENTES, BALA Nam [...] FOR OTHER PREPROCEDURAL EXAMIN 05/31/2016 SHELBY TAO GAS METER MECHANIC Ot Z12.31 ENCNTR SCREEN MAMMOGRAM FOR MALIGNANT [...] FOR OTHER PREPROCEDURAL EXAMIN 06/27/2016 SHELBY TAO GAS METER MECHANIC Ot Z12.31 ENCNTR SCREEN MAMMOGRAM FOR MALIGNANT NE 06/27/2016 SHAHRAM TRAVIS DO Ot M54.32 SCIATICA, LEFT SIDE 06/27/2016 Ot M54.2 CERVICALGIA 06/27/2016 SHELBY TAO GAS METER MECHANIC Ot Z12.31 ENCNTR SCREEN MAMMOGRAM FOR MALIGNANT NE 06/27/2016 SHAHRAM TRAVIS DO Ot M54.32 SCIATICA, LEFT SIDE 06/27/2016 Ot M54.2 CERVICALGIA 06/27/2016 TED MD, MARTHA A Ot K21.9 GASTRO-ESOPHAGEAL REFLUX DISEASE WITHOUT 06/27/2016 SHELBY TAO GAS METER MECHANIC Ot Z12.31 ENCNTR SCREEN MAMMOGRAM FOR MALIGNANT NE 06/27/2016 ANGY COREY SHAHRAM Lance Ot M54.32 SCIATICA, LEFT SIDE 06/27/2016 Ot M54.2 CERVICALGIA 06/28/2016 TED FUENTES, MARTHA A Ot K21.9 GASTRO-ESOPHAGEAL REFLUX DISEASE WITHOUT 10/18/2016 ASTER SERRANO DO Ot B96.81 HELICOBACTER PYLORI [...] Z12.11 ENCOUNTER FOR SCREENING FOR MALIGNANT NE 10/26/2016 JOHN GARCIAP Ot F32.9 MAJOR DEPRESSIVE DISORDER, SINGLE EPISOD 10/26/2016 JOSEJOHN WhiteP Ot F41.9 ANXIETY DISORDER, UNSPECIFIED 10/26/2016 JOSE, JOHN MOTOR VEHICLE OPERATOR ROAD SUPERVISOR Ot F50.9 EATING DISORDER, UNSPECIFIED 10/26/2016 JOSEJOHN WhiteP Ot K21.9 GASTRO-ESOPHAGEAL REFLUX DISEASE WITHOUT 10/26/2016 JOSE, JOHN MOTOR VEHICLE OPERATOR ROAD SUPERVISOR Ot K59.09 OTHER CONSTIPATION 10/26/2016 JOSE, JOHN MOTOR VEHICLE OPERATOR ROAD SUPERVISOR Ot K92.0 HEMATEMESIS 10/26/2016 JOSE, JOHN MOTOR VEHICLE OPERATOR ROAD SUPERVISOR Ot M19.90 UNSPECIFIED OSTEOARTHRITIS, UNSPECIFIED 10/26/2016 JOSE, OJHN MOTOR VEHICLE OPERATOR ROAD SUPERVISOR Ot T17.928A FOOD IN RESP TRACT, PART UNSP CAUSING OT 10/26/2016 JOSE, JOHN MOTOR VEHICLE OPERATOR ROAD SUPERVISOR Ot Z87.891 PERSONAL HISTORY OF NICOTINE DEPENDENCE 10/26/2016 JOSE, JOHN MOTOR VEHICLE OPERATOR ROAD SUPERVISOR Ot Z90.710 ACQUIRED ABSENCE OF BOTH CERVIX AND UTER 10/26/2016 JOSE JOHN MOTOR VEHICLE OPERATOR ROAD SUPERVISOR Ot Z91.5 PERSONAL HISTORY OF SELF-HARM 10/28/2016 JOHN GARCIAP Ot F32.9 MAJOR DEPRESSIVE DISORDER, SINGLE EPISOD 10/28/2016 JOHN GARCIAP Ot F41.9 ANXIETY DISORDER, UNSPECIFIED 10/28/2016 JOHN GARCIAP Ot F50.9 EATING DISORDER, UNSPECIFIED 10/28/2016 JOHN GARCIAP Ot K21.9 GASTRO-ESOPHAGEAL REFLUX DISEASE WITHOUT 10/28/2016 JOSE JOHN GUEVARAP Ot K59.09 OTHER CONSTIPATION 10/28/2016 JOSE JOHN GUEVARAP Ot K92.0 HEMATEMESIS 10/28/2016 JOSE JOHN GUEVARAP Ot M19.90 UNSPECIFIED OSTEOARTHRITIS, UNSPECIFIED 10/28/2016 JOSE, JOHN GUEVARAP Ot T17.928A FOOD IN RESP TRACT, PART UNSP CAUSING OT 10/28/2016 JOSE JOHN GUEVARAP Ot Z87.891 PERSONAL HISTORY OF NICOTINE DEPENDENCE 10/28/2016 JOSE, JOHN GUEVARAP Ot Z90.710 ACQUIRED ABSENCE OF BOTH CERVIX AND UTER 10/28/2016 JOSE, JOHN GUEVARAP Ot Z91.5 PERSONAL HISTORY OF SELF-HARM Procedures Code Description [place] [address] INDIV PSYTX 45/50 MIN 02/16/2012 88843 SLEEP STUDY 02/19 54204 INDIV PSYTX 20/30 MIN 02/27/2012 23638 INDIV PSYTX 45/50 MIN 03/28/2012 04396 PSYTX PT&/FAMILY 30 MINUTES 04/23/2012 56392 PSYCH PHARM MGMT 04/25/2012 45498 PSYTX PT&/FAMILY 45 MINUTES 06/06/2012 27956 PSYTX PT&/FAMILY 45 MINUTES 06/06/2012 28417 GLUCOSE FINGER STICK 07/18/2012 10418 PSYTX PT&/FAMILY 30 MINUTES 08/09/2012 27388 PSYTX PT&/FAMILY 45 MINUTES 08/09/2012 33363 PSYTX PT&/FAMILY 45 MINUTES 09/17/2012 84800 PSYTX PT&/FAMILY 45 MINUTES 10/01/2012 96.04 INSERT ENDOTRACHEAL TUBE 11/04/2012 96.71 CONTINUOUS INVASIVE MECHANICAL VENTILATI 11/04/2012 94.62 ALCOHOL DETOXIFICATION 11/05/2012 43755 ROUTINE VENIPUNCTURE 08/20/2013 3617661 GFR CALC (RESULT ONLY) 08/20/2013 55477 CMP 08/20/2013 38157 LIPID PANEL 08/20 96.04 INSERT ENDOTRACHEAL TUBE 09/26/2013 96.71 CONTINUOUS INVASIVE MECHANICAL VENTILATI 09/26/2013 Results Encounters ACCT No. Visit Date/Time Discharge Status Pt. Type Provider Facility Loc./Unit Complaint [id number] 05/20/2014 08:57:00 05/20/2014 23: 59:59 CLS Outpatient EVAN COSTELLO APRN [id number] 03/18/2014 09:45:00 03/18/2014 23: 59:59 CLS Outpatient EVAN COSTELLO APRN [id number] 12/06/2013 10:46:00 12/06/2013 23: 59:59 CLS Outpatient LORETTA BUI HASEEB MAGUIREH [id number] 11/04/2013 15:18:00 11/04/2013 23: 59:59 CLS Outpatient BALA SUTTON MD [id number] 10/02/2013 14:49:00 10/02/2013 23: 59:59 CLS Outpatient LORETTA BUI HASEEB MAGUIREH [id number] 08/20/2013 07:55:00 08/20/2013 23: 59:59 CLS Outpatient BALA SUTTON MD [id number] 08/01/2013 14:23:00 08/01/2013 23: 59:59 CLS Outpatient LORETTA BUI HASEEB MAGUIREH [id number] 03/01/2013 13:49:00 03/01/2013 23: 59:59 CLS Outpatient LORTETA BUI HASEEB CRISTINA [id number] 12/31/2012 13:23:00 12/31/2012 23: 59:59 CLS Outpatient EVANGELINA WATERMAN DO [id number] 07/18/2012 10:18:00 07/18/2012 23: 59:59 CLS Outpatient [id number] 06/19/2012 11:45:00 06/19/2012 23: 59:59 CLS Outpatient EVANGELINA WATERMAN DO [id number] 06/04/2012 09:51:00 06/04/2012 23: 59:59 CLS Outpatient VIDYA GARCIA PSYD [id number] 04/23/2012 07:55:00 04/23/2012 23: 59:59 CLS Outpatient VIDYA GARCIA PSYD [id number] 04/13/2012 14:17:00 04/13/2012 23: 59:59 CLS Outpatient EVANGELINA WATERMAN DO [id number] 03/28/2012 09:42:00 03/28/2012 23: 59:59 CLS Outpatient [id number] 2012 11:50:00 2012 23: 59:59 CLS Outpatient VIDYA GARCIA PSYD GAVIN Wahl [id number] 12/18/2012 08:47:00 Document Registration [id number] 11/02/2012 14:52:00 Document Registration [id number] 09/26/2012 16:50:00 Document Registration [id number] 09/19/2012 10:49:00 Document Registration [id number] 09/17/2012 07:54:00 Document Registration [id number] 08/07/2012 14:46:00 Document Registration [id number] 08/02/2012 11:50:00 Document Registration [id number] 10/26/2016 18:08:00 2016 19:42:00 DIS Emergency JOHN GARCIA [facility] ER VOMITING W TRACES OF BLOOD [id number] 06/27/2016 02:31:00 2016 03:25:00 DIS Emergency MARTHA JEAN MD [facility] ER THROAT PAIN [id number] 05/31/2016 09:06:00 2016 12:00:00 DIS Outpatient ASTER SERRANO DO [facility] ENDO REFLUX [id number] 05/30/2016 10:00:00 2016 11:04:00 DIS Outpatient ASTER SERRANO DO [facility] PREOP REFLUX [id number] 06/08/2015 12:41:00 2015 23:59:59 CLS Outpatient SHAHRAM TRAVIS DO [facility] RAD SCIATICA [id number] 04/15/2015 14:35:00 2014 23:59:59 CLS Outpatient SHELBY TAO APRN [facility] RAD SCREENING [id number] 10/06/2014 17:34:00 2014 10:39:00 DIS Inpatient BALA SUTTON MD [facility] ICU OVERDOSE;ETOH [id number] 09/26/2013 03:01:00 2013 13:00:00 DIS Inpatient BALA SUTTON MD [facility] 4TH AMS,ALCOHOL INTOXICATION [id number] 11/04/2012 22:30:00 2012 19:02:00 DIS Inpatient SHERRI CONRAD DO [facility] 4TH INTENTIONAL DRUGE OVERDOSE; ALCOHOL INTOXICATION [id number] 09/27/2012 17:45:00 2012 14:45:00 DIS Inpatient WESTON FUENTES, RACHEL Wahl [facility] ICU DRUG OVERDOSE/SUICIDE [id number] 09/12/2012 18:15:00 2012 11:55:00 DIS Inpatient TRUDI FUENTES, JEAN PIERRE Muro [facility] ICU OVERDOSE [id number] 07/17/2015 09:15:00 Document Registration [id number] 04/15/2015 14:33:00 Document Registration [id number] 11/11/2011 07:12:00 Document Registration
[2017-01-24] MEDS ORDERED: NS (IVPB) 50 ML ONE (06:37)
[2017-01-24] MEDS ORDERED: cefTRIAXone 1 GM (ROCEPHIN) VIAL ONE (06:37)
[2017-01-24] MEDS ORDERED: LACTATED RINGERS 1,000 ML IV PRN (06:46)
[2017-01-24] MEDS ORDERED: proPOfol 200 MG/20 ML (DIPRIVAN) VIAL IV ONE (06:52)
[2017-01-24] MEDS ORDERED: SEVOFLURANE (ULTANE) 15 ML INHAL SOLN ONE (06:52)
[2017-01-24] MEDS ORDERED: DEXAMETHASONE 10 MG/ML (DECADRON) 1 ML VIAL ONE (06:52)
[2017-01-24] MEDS ORDERED: LIDOCAINE PF 2% 5 ML (XYLOCAINE) VIAL ONE (06:52)
[2017-01-24] MEDS ORDERED: ONDANSETRON 4 MG/2 ML (SDV) Z0FRAN ONE ×2 (06:52→23:22)
[2017-01-24] MEDS ORDERED: MIDAZOLAM 2 MG/2 ML (VERSED) VIAL ONE (06:53)
[2017-01-24] MEDS ORDERED: fentaNYL INJECTION 100 MCG/2 ML AMP ONE (06:53)
[2017-01-24] MEDS ORDERED: FAMOTIDINE 20MG/2ML IV (PEPCID) IV ONE (07:00)
[2017-01-24] MEDS ORDERED: GUAN3TAB PO (07:05)
[2017-01-24] MEDS ORDERED: ESTRADIOL VAGINAL CREAM 42.5 GM (ESTRACE) VG ONE (07:06)
[2017-01-24] MEDS ORDERED: LIDOCAINE/EPI 1%-1:200,000 (XYLOCAINE) 10 ML VIAL ONE (07:07)
--- NOTE | 2017-01-24 07:07 | Progress Note-Pre Operative ---
Pre-Operative Progress Note H&P Reviewed The H&P was reviewed, patient examined and no changes noted. Date Seen by Provider: Jan 24, 2017 Time Seen by Provider: 07:06 Date H&P Reviewed: Jan 24, 2017 Time H&P Reviewed: 07:06 Pre-Operative Diagnosis: MIXED INCONTINENCE, OAB, ISD GAYLE HUSSEIN MD Jan 24, 2017 7:07 am
--- NOTE | 2017-01-24 07:08 | Progress Note-Post Operative ---
Post-Operative Progess Note Surgeon (s)/Awning Maker And Installer (s) Surgeon GAYLE HUSSEIN MD Awning Maker And Installer: N/A Pre-Operative Diagnosis MIXED INCONTINENCE, OAB, ISD Post-Operative Diagnosis SAME Procedure & Operative Findings Date of Procedure 01/24/17 Procedure Performed/Findings PVS AND CYSTO Anesthesia Type GENERAL Estimated Blood Loss Estimated blood loss (mL): LESS THAN 50cc Specimens/Packing Specimens Removed N/A Packing: ESTRACE VAGINAL PACK GAYLE HUSSEIN MD Jan 24, 2017 7:08 am
[2017-01-24] MEDS ORDERED: HYDROcodone/APAP 10 MG/325 MG (LORTAB) TAB PO PRN (07:15)
[2017-01-24] MEDS ORDERED: GLYCOPYRROLATE 0.2 MG/ML (ROBINUL) 2 ML VIAL ONE (07:43)
[2017-01-24] MEDS ORDERED: cefTRIAXone 1 GM/NS 50 ML IVPB IV ONE ×2 (07:45)
[2017-01-24] MEDS ORDERED: CATHETER FLUSH 10 ML SYR IV PRN (07:45)
[2017-01-24] MEDS ORDERED: morphine INJ 10 MG/ML 1ML (SYR OR VIAL) IVP PRN (08:30)
[2017-01-24] MEDS ORDERED: ONDANSETRON 4 MG/2 ML (SDV) Z0FRAN IVP PRN (08:30)
[2017-01-24] MEDS: LACTATED RINGERS 1,000 ML IV SCH (14:41)
--- NOTE | 2017-01-24 15:48 | OPERATIVE REPORT ---
DATE OF SERVICE: 01/24/2017 PREOPERATIVE DIAGNOSIS: Mixed incontinence with overactive bladder and intrinsic sphincter deficiency. POSTOPERATIVE DIAGNOSIS: Mixed incontinence with overactive bladder and intrinsic sphincter deficiency. OPERATION PERFORMED: Pubovaginal vaginal sling and cystoscopy. SURGEON: Liban Hussein MD ANESTHESIA: General. COMPLICATIONS: None. PROCEDURE: Under satisfactory general anesthesia with the patient extended in lithotomy position, genitalia were prepped and draped in the usual sterile fashion with a separate vaginal prep. Mckeon catheter was inserted and drained the bladder. Anterior vaginal wall was then infiltrated with lidocaine and epinephrine to facilitate dissection. A midline incision was made and the dissection was carried on both sides toward the shoulder of the patient and the pubic arch. The pubic arch was felt nicely on both sides. The pubovaginal sling, Solyx type, was passed using the described technique. The sling was sitting nicely under the mid urethra with no tension, no twist. Catheter was removed and cystoscopy was performed to confirm the integrity of the bladder, ureteral orifices and urethra with no foreign body and the bladder was filled at least half. The cystoscope was removed and a manual Valsalva maneuver was performed and it was negative. The catheter was reinserted, draining clear fluid again. Closure was performed in one layer approximating the vaginal mucosa with a running 2-0 Vicryl. Estrace vaginal pack was inserted. Estimated blood loss less was than 50 mL, none of which was replaced. Needle, sponge and instrument counts were correct x2. The patient tolerated the procedure and anesthesia well and was sent to recovery room in stable condition. Job ID: [id number] DocumentID: [id number] Dictated Date: 01/24/2017 08:12:14 [employer] Rule [employer] Date: 01/24/2017 09:00:11 Dictated By: LIBAN HUSSEIN MD
[2017-01-24] MEDS: KETOROLAC 30 MG/ML VIAL IV PRN ×2 (16:45→22:37)
[2017-01-24] MEDS ORDERED: INFLUENZA TRIvalent 2017-2018 0.5 ML/45 MCG SYR IM ONE (19:15)
[2017-01-25 04:20] VITALS: BP 106/63
[2017-01-25] MEDS: KETOROLAC 30 MG/ML VIAL IV PRN (04:26)
[2017-01-25] MEDS: LACTATED RINGERS 1,000 ML IV SCH (04:49)
[2017-01-25] MEDS ORDERED: LEVOFLOXACIN 250 MG/50 ML IVPB 50 ML IV SCH (07:08)
[2017-01-25 08:40] VITALS: BP 103/60
--- NOTE | 2017-01-25 10:19 | Progress Note-Urology ---
Progress Note-Urology Progress Notes/Assess & Plan Progress/Assessment & Plan AFEBRILE, VSS. FEELING AND DOIND WELL. TILLEY AND PACK OUT. DID NOT VOID YET. Final Diagnosis MIXED INCONTINENCE, OAB, AND ISD GAYLE HUSSEIN MD Jan 25, 2017 10:19 am
[2017-01-25] MEDS ORDERED: CIPR-225 PO (11:24)
--- NOTE | 2017-01-25 11:26 | Anesthesia-General Post-Op ---
General Patient Condition Mental Status/LOC: Same as Preop Cardiovascular: Satisfactory Nausea/Vomiting: Absent Respiratory: Satisfactory Pain: Controlled Complications: Absent Post Op Complications Complications None Follow Up Care/Instructions Patient Instructions None needed. Anesthesia/Patient Condition Patient Condition Patient is doing well, no complaints, stable vital signs, no apparent adverse anesthesia problems. No complications reported per nursing. CHASE MARTINEZ CRNA Jan 25, 2017 11:26
== END 2017-01-25 11:50 | disposition home or self-care (01) ==
LOC: SDC 06:15 → EDSTATUS 08:00 → WS 09:39 → SDC 01-25 11:50
PROVIDERS: ATTEND Urology
DX: N39.46 Mixed incontinence (principal); N36.42 Intrinsic sphincter deficiency (ISD); N32.81 Overactive bladder; Z11.2 Encounter for screening for other bacterial diseases; K21.9 Gastro-esophageal reflux disease without esophagitis; E66.9 Obesity, unspecified; Z68.30 Body mass index [BMI] 30.0-30.9, adult; F32.9 Major depressive disorder, single episode, unspecified; F41.9 Anxiety disorder, unspecified; M79.7 Fibromyalgia; F98.8 Other specified behavioral and emotional disorders with onset usually occurring in childhood and adolescence; Z79.899 Other long term (current) drug therapy
CPT/HCPCS: 87081; 94664